=== PATIENT | female | born 1970 | race Caucasian/White ===

== ENCOUNTER 2021-08-04 17:46 | Emergency (ER) | payer OTHER, SELFPAY ==
[2021-08-04 17:47] VITALS: BP 107/95; PULSE 82; RESP 18; TEMP 36.1; O2SAT 97; BMI 20.9
--- NOTE | 2021-08-04 18:33 | ED.VIS.GI ---
HPI HPI - GI History of Present Illness Chief Complaint: Nausea/Vomiting/Diarrhea Informant: patient Abdominal Pain/Flank Pain Onset: Today Context: Gradual Onset Timing: Intermittent Current Severity: Mild Maximum Severity: Mild Nausea/Vomiting/Emesis GI Symptom: Positive for Nausea and Vomiting Onset: Today Severity: Moderate Diarrhea/Melena/Hematochezia GI Symptom: Positive for Diarrhea; Negative for Melena and Hematochezia Onset: Today Stool Quality: Positive for Watery Severity: Moderate Associated Symptoms Associated Symptoms: Negative for Dysuria, Frequency, Hematuria and Urgency Narrative Narrative: Female history of hypertension. States 3 weeks ago she Nebcin nausea vomiting diarrhea and she had to be admitted to [facility] overnight. They never came up with a specific answer at that time. 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 Today she was at home watching a movie felt fine around 330 start having nausea vomiting diarrhea again. Patient drinks city water. She has had no recent travel. No one else at home has been ill. She was on antibiotics several weeks ago for an abscess on her right arm but that is since resolved and she has been off the antibiotics. Her only prior abdominal surgeries are hysterectomy. She is not complaining of any significant pain. Squad gave her Zofran and her nausea is much proved. Prior similar symptoms: Yes Recent Illness/Hospitalization: Yes PFSH [facility] Medical History HTN (hypertension) Home Medications bupropion HCl 150 mg PO DAILY 08/04/21 [History Last Taken Unknown] lisinopril 10 mg PO DAILY 08/04/21 [History Last Taken Unknown] ondansetron 4 mg PO Q6H PRN #7 tab 08/04/21 [Rx Last Taken Unknown] Allergy/AdvReac Type Severity Reaction Status Date / Time Penicillins Allergy Unknown Verified 08/04/21 17:47 Social History Smoking Status: Current every day smoker tobacco type: e-cigarettes ROS ROS ED ROS Narrative Nausea, vomiting and diarrhea. No fever. Review of Systems ROS Unobtainable: Denies due to encephalopathy Constitutional Constitutional ED: Denies fever(s) ENT ENT ED: Denies ear pain Cardiovascular Cardiovascular: Denies chest pain Respiratory/Chest Respiratory/Chest: Denies dyspnea Gastrointestinal Gastrointestinal: Reports diarrhea, nausea and vomiting; Denies abdominal pain Genitourinary Genitourinary ED: Denies dysuria Musculoskeletal Musculoskeletal: Denies myalgias Integumentary Denies rash Neurologic Neurologic: Denies headache(s) Psychiatric Psychiatric: Denies depression Endocrine Endocrinology: Denies polyuria Hematologic/Lymphatic Hematologic/Lymphatic: Denies easy bruising Allergic/Immunologic Allergic/Immunologic ED: Denies urticaria EXAM Physical Exam Narrative Exam Narrative: 51-year-old female no acute distress. Vital signs stable afebrile. H EENT exam mildly dry mucous membranes. Neck nontender. Lungs clear to auscultation bilaterally. Heart regular rate and rhythm rate about 80. Abdomen soft nontender. Normal bowel sounds no peritoneal signs. Nontender. Moving all 4 extremities. Nontender no edema. Neurologically she is awake and alert. Back nontender. Const Vital Signs: 08/04/21 17:47 Temperature 96.9 F L Temperature Source Temporal Pulse Rate 82 Respiratory Rate 18 Blood Pressure 107/95 H Blood Pressure Mean 99 Pulse Ox 97 Oxygen Delivery Method Room Air Positive well nourished and well developed; Negative for obese, cachectic, contractures or unkempt General Appearance ED: well developed and NAD; Negative for unkempt, cachectic, contractures or pallor Nutritional Appearance: Negative for cachectic or obese HEENT Reports dry mucous membranes normocephalic and atraumatic Mouth ED: Yes dry mucous membranes Mouth: dry mucous membranes Eyes PERRL and EOMs intact bilaterally Neck no lymphadenopathy, supple and no JVD General: Negative for tenderness Resp normal respiratory effort and clear to auscultation bilaterally Auscultation: Negative for rales, rhonchi or wheezes Cardio regular rate, regular rhythm, S1 normal heart sound, S2 normal heart sound and no murmurs GI non-tender, non-distended and no masses Auscultation: normoactive bowel sounds Palpation: soft; Negative for tender, guarding or rigid Back/Spine no CVA tenderness General Back: Negative for CVA tenderness Cervical Spine: Negative for cervical spine tenderness Thoracic Spine / Upper Back: Negative for thoracic spinal tenderness Extremity full ROM General Extremety ED: Negative for edema or tenderness General Extremity: Negative for edema Neuro CN's II-XII intact bilaterally and moves all extremities Sensorium / Orientation: alert, oriented to person, oriented to place, oriented to time and orientation impaired; Negative for confused, lethargic or stuporous Motor Exam: strength 5/5 throughout Psych mental status grossly normal and thought process normal Appearance: Negative for unkempt Skin no wounds General Skin Exam: Negative for jaundice or pallor Lesions: no lesions Rashes: no rashes MDM MDM MDM Narrative Medical decision making narrative: 51-year-old nausea vomiting diarrhea. Clinic looks mildly dehydrated. Screening labs will be obtained. IV fluids. At this time her nausea is improved to the squad gave her Zofran. Repeat exam the patient is doing well at 9:52 PM. Abdomen is benign. She is feeling much better. She will be discharged home on Zofran. Lab Data Attestation: I reviewed the patient's lab results. Lab results narrative: CBC showed a white count of 7. H&H of 15 and 43. Normal platelets. Electrolytes showed a sodium 134. Potassium 3.4. Gap of 14. BUN and creatinine 24 and 1.36. Glucose 161. Liver enzymes are unremarkable. Labs: Laboratory Results - last 24 hr 08/04/21 08/04/21 17:50 17:50 WBC 7.9 RBC 4.91 Hgb 15.8 H Hct 43.2 MCV 88.0 MCH 32.2 H MCHC 36.6 H RDW Std Deviation 39.1 RDW Coeff of Janine 12.0 Plt Count 353 MPV 10.1 Immature Gran % (Auto) 0.300 Neut % (Auto) 54.7 Lymph % (Auto) 40.1 [place] % (Auto) 4.4 Eos % (Auto) 0.1 Baso % (Auto) 0.4 Absolute Neuts (auto) 4.3 Absolute Lymphs (auto) 3.16 Nucleated RBC % 0 Sodium 134 L Potassium 3.4 L Chloride 102 Carbon Dioxide 18.0 L Anion Gap 14 BUN 24 H Creatinine 1.36 H Estim Creat Clear Calc 45.58 Est GFR (MDRD) Af Amer 53 L Est GFR (MDRD) Non-Af 44 L BUN/Creatinine Ratio 17.6 Glucose 161 H Calcium 11.3 H Total Bilirubin 0.30 AST 21 ALT 27 Alkaline Phosphatase 77 Total Protein 8.9 H Albumin 4.8 Globulin 4.1 Albumin/Globulin Ratio 1.2 Discharge Plan Triage Chief Complaint: Nausea/Vomiting/Diarrhea ED Provider: Chapo Ivy Dx/Rx/DC Orders Clinical Impression: Nausea & vomiting, Acute dehydration Instructions: ED Vomiting (Adult) Prescriptions: New ondansetron 4 mg tablet,disintegrating 4 mg PO Q6H PRN (Reason: nausea and vomiting) Qty: 7 RF: 0 No Action bupropion HCl 150 mg Tablet Sustained-Release 12 Hr 150 mg PO DAILY RF: 0 lisinopril 10 mg Tablet 10 mg PO DAILY RF: 0 Primary Care Provider: Debbie William Referrals: Debbie William PA [Primary Care Provider] - 1-2 Days if not improving Activity Restrictions/Additional Instructions: Plenty of fluids and rest. Increase your diet slowly as tolerated. Zofran as needed for nausea. If recurs need further evaluation. Disposition Disposition: Home, Self Care
[2021-08-04] MEDS: 0.9% Normal Saline 1,000 ML 1000 ML IV (18:41)
[2021-08-04 18:47] LABS: Absolute Lymphocyte Count 3.16 X10^3/uL (0.83-4.51); Absolute Neutrophil Count 4.3 X10^3/uL (2.0-7.7); Basophil# 0.03 X10^3/uL; Basophil% 0.4 % (0-1); Eosinophil# 0.01 X10^3/uL; Eosinophils% 0.1 % (0-5); Hematocrit 43.2 % (37-47); Hemoglobin 15.8 g/dL (12.0-15.0); Lymphocyte # 3.16 X10^3/ul (0.83-4.51); Lymphocyte % 40.1 % (19-41); Mean Corp Hgb Conc 36.6 g/dL (32-36); Mean Corpuscular Hgb 32.2 pg (27.0-32.0); Mean Platelet Vol. 10.1 fl (6.2-12.0); Monocyte# 0.35 X10^3/uL; Monocyte% 4.4 % (0-10); NRBC Flagged by Analyzer 0 % (0-5); Neutrophil # 4.32 X10^3/uL (2.7-7.7); Neutrophil % 54.7 % (47-70); Platelet Count 353 K/mm3 (150-450); RBC Distribution Width SD 39.1 fl (35.1-43.9); Red Blood Count 4.91 M/mm3 (4.2-5.4); White Blood Count 7.9 K/mm3 (4.4-11.0)
[2021-08-04 19:06] LABS: ALB/GLOB Ratio 1.2 RATIO (0.9-2.4); AST(SGOT) 21 U/L (15-37); Alanine Aminotransfer ALT/SGPT 27 U/L (13-56); Albumin, Serum 4.8 g/dL (3.2-5.0); Alkaline Phosphatase 77 U/L (45-117); Anion Gap 14 (5-15); BUN 24 mg/dL (7-18); BUN/Creat Ratio 17.6 RATIO (10-20); Calcium,Total 11.3 mg/dL (8.5-10.1); Chloride 102 mmol/L (98-107); Creatinine, Serum 1.36 mg/dL (0.55-1.02); EST Glomerular Filtration Rate 44 mL/min (>60); Est Glom Filt Rate - Afr Amer 53 mL/min (>60); Estimated Creatinine Clearance 45.58 ml/min; Globulin 4.1 g/dL (2.2-4.2); Glucose 161 mg/dL (74-106); Potassium 3.4 mmol/L (3.5-5.1); Protein, Total 8.9 g/dL (6.4-8.2); Sodium Level 134 mmol/L (136-145)
[2021-08-04 21:53] VITALS: BP 124/85; PULSE 84; RESP 16; O2SAT 97
[2021-08-04 22:04] VITALS: BP 124/85; PULSE 84; RESP 16; O2SAT 97
== END 2021-08-04 22:47 | disposition home or self-care (01) ==
PROVIDERS: Emergency Provider Emergency Medicine; PCP Physician Assistant; Visit Provider Emergency Medicine
DX: R11.2 Nausea with vomiting, unspecified (principal); I10 Essential (primary) hypertension; R19.7 Diarrhea, unspecified; F17.290 Nicotine dependence, other tobacco product, uncomplicated; R10.9 Unspecified abdominal pain; E86.0 Dehydration; Z79.899 Other long term (current) drug therapy
CPT/HCPCS: 80053; 85025; 99285; J7030

== ENCOUNTER 2023-07-17 15:23 | Emergency (ER) | payer OTHER, SELFPAY ==
[2023-07-17 15:23] VITALS: BP 117/82; PULSE 96; RESP 22; TEMP 36.8; O2SAT 97; BMI 22.7
[2023-07-17 16:03] LABS: Absolute Lymphocyte Count 1.59 X10^3/uL (0.83-4.51); Absolute Neutrophil Count 8.4 X10^3/uL (2.0-7.7); Basophil# 0.04 X10^3/uL; Basophil% 0.4 % (0-1); Eosinophil# 0.15 X10^3/uL; Eosinophils% 1.4 % (0-5); Hematocrit 41.2 % (37-47); Hemoglobin 13.7 g/dL (12.0-15.0); Lymphocyte # 1.59 X10^3/ul (0.83-4.51); Lymphocyte % 14.8 % (19-41); Mean Corp Hgb Conc 33.3 g/dL (32-36); Mean Corpuscular Hgb 30.4 pg (27.0-32.0); Mean Corpuscular Volume 91.4 fL (81-99); Mean Platelet Vol. 8.5 fl (6.2-12.0); Monocyte# 0.57 X10^3/uL; Monocyte% 5.3 % (0-10); NRBC Flagged by Analyzer 0 % (0-5); Neutrophil # 8.38 X10^3/uL (2.7-7.7); Neutrophil % 77.7 % (47-70); Platelet Count 338 K/mm3 (150-450); RBC Distribution Width SD 39.9 fl (35.1-43.9); Red Blood Count 4.51 M/mm3 (4.2-5.4); White Blood Count 10.8 K/mm3 (4.4-11.0)
[2023-07-17 16:08] LABS: Bacteria 0 SEEN /hpf (None Seen); Mucous, Urine 0 SEEN /hpf (<or=2+); White Blood Cells 0 SEEN /hpf (0-5)
--- NOTE | 2023-07-17 16:15 | ED.VIS.GI ---
HPI HPI - GI History of Present Illness Chief Complaint: Abd Pain Informant: patient Abdominal Pain/Flank Pain Onset: Days (3) Context: Sudden Onset Timing: Continuous Quality: Cramping Location: Diffuse Worsened by: Food Relieved by: Nothing Nausea/Vomiting/Emesis GI Symptom: Positive for Nausea and Vomiting Onset: Days (3) Quality: Positive for Nonbilious; Negative for Blood streaks, Coffee ground or Hematemesis Diarrhea/Melena/Hematochezia GI Symptom: Positive for Diarrhea; Negative for Melena or Hematochezia Onset: Days (3) Stool Quality: Positive for Watery Associated Symptoms Associated Symptoms: Negative for Dysuria, Frequency or Hematuria Narrative Narrative: Patient presents with abdominal pain that has been constant for the past 3 days. Patient states it began rather suddenly. Patient states it is diffuse across her entire abdomen. Patient describes it as cramping. Patient states it is worse with eating. Patient states nothing seems to help with it. Patient admits to some nausea and vomiting. Patient states she has been to keep anything down over the last 3 days. Patient denies any hematemesis or coffee-ground emesis. Patient admits to some diarrhea. Patient states it is watery. Patient denies any melena or hematochezia. Patient denies any dysuria, frequency, or hematuria. Patient has had a hysterectomy and no longer has any menstrual periods. Patient denies any vaginal bleeding or discharge. [facility] Medical History (Updated 07/17/23 @ 19:[address] Jorge Luis Reyes, DO) HTN (hypertension) Home Medications bupropion HCl 150 mg tablet,12 hr sustained-release 150 mg PO DAILY 08/04/21 [History Last Taken Unknown] lisinopril 10 mg tablet 10 mg PO DAILY 08/04/21 [History Last Taken Unknown] ondansetron 4 mg disintegrating tablet 4 mg PO Q6H PRN nausea and vomiting #7 tabs 08/04/21 [Rx Last Taken Unknown] ciprofloxacin HCl 500 mg tablet 500 mg PO BID #42 TABLETS 07/17/23 [Rx Last Taken Unknown] hydrocodone-acetaminophen 5-325mg 5mg-325mg 1 tab PO Q6H PRN PRN Pain 3 days #10 TABLETS 07/17/23 [Rx Last Taken Unknown] metronidazole 500 mg tablet 500 mg PO Q8H #63 tabs 07/17/23 [Rx Last Taken Unknown] prednisone 20 mg tablet 40 mg (2 x 20 mg) PO DAILY 21 days #42 TABLETS 07/17/23 [Rx Last Taken Unknown] Allergy/AdvReac Type Severity Reaction Status Date / Time Penicillins Allergy Unknown Verified 08/04/21 17:47 Surgical History History of hysterectomy Social History Smoking Status: Current every day smoker tobacco type: e-cigarettes ROS ROS ED Constitutional Constitutional ED: Reports chills and subjective; Denies fever(s) Eyes Eyes: Denies blurry vision or change in vision ENT ENT ED: Denies rhinorrhea or sore throat Cardiovascular Cardiovascular: Denies chest pain or palpitations Respiratory/Chest Respiratory/Chest: Denies cough or dyspnea Gastrointestinal Gastrointestinal: Reports abdominal pain, diarrhea, nausea and vomiting; Denies melena Genitourinary Genitourinary ED: Denies dysuria or hematuria Musculoskeletal Musculoskeletal: Denies back pain or neck pain Integumentary Denies abscess or rash Neurologic Neurologic: Reports headache(s); Denies weakness Allergic/Immunologic Allergic/Immunologic ED: Denies mouth swelling or urticaria EXAM Physical Exam Const Vital Signs: 07/17/23 15:23 07/17/23 18:44 Temperature 98.3 F Temperature Source Temporal Pulse Rate 96 86 Respiratory Rate 22 H 15 Blood Pressure 117/82 H 139/84 H Blood Pressure Mean 93 102 Pulse Ox 97 97 Oxygen Delivery Method Room Air Room Air Positive well nourished and well developed General Appearance ED: well developed and NAD HEENT Reports moist mucous membranes Neck supple and no JVD Resp normal respiratory effort and clear to auscultation bilaterally Cardio regular rate and regular rhythm GI non-distended Palpation: soft and tender epigastric, LLQ, RLQ, LUQ, RUQ, periumbilical and suprapubic; Negative for guarding or rebound tenderness present Extremity full ROM Neuro CN's II-XII intact bilaterally, moves all extremities and no sensory deficits noted Sensorium / Orientation: alert Motor Exam: strength 5/5 throughout Psych mental status grossly normal MDM MDM MDM Narrative Medical decision making narrative: Differential diagnosis includes bowel obstruction, perforation, pancreatitis, gastritis, peptic ulcer disease, urinary tract infection, pyelonephritis, ureteral calculus, colitis, diverticulitis, and viral illness. CBC will be obtained to assess for leukocytosis and anemia. Comprehensive metabolic profile will be obtained to assess for hepatic function, renal function, and electrolyte abnormality. Urinalysis will be obtained to assess for urinary tract infection. Lipase will be obtained to assess for pancreatitis. CT scan of the abdomen pelvis will be obtained to assess for bowel obstruction, perforation, colitis, diverticulitis, and ureteral calculus. Lab Data Attestation: I reviewed the patient's lab results. Lab results narrative: CBC was reviewed and was within normal limits. Comprehensive metabolic profile was reviewed and was within normal limits. Urinalysis was reviewed. There is no evidence of urinary tract infection or hematuria. Lipase was reviewed and was normal at 66. Labs: Laboratory Results - last 24 hr 07/17/23 07/17/23 15:37 15:54 WBC 10.8 RBC 4.51 Hgb 13.7 Hct 41.2 MCV 91.4 MCH 30.4 MCHC 33.3 RDW Std Deviation 39.9 RDW Coeff of Janine 12.0 Plt Count 338 MPV 8.5 Immature Gran % (Auto) 0.400 Neut % (Auto) 77.7 H Lymph % (Auto) 14.8 L [place] % (Auto) 5.3 Eos % (Auto) 1.4 Baso % (Auto) 0.4 Absolute Neuts (auto) 8.4 H Absolute Lymphs (auto) 1.59 Nucleated RBC % 0 Sodium 137 Potassium 3.8 Chloride 106 Carbon Dioxide 26.0 Anion Gap 5 BUN 18 Creatinine 0.96 Estim Creat Clear Calc 63.44 Est GFR (MDRD) Af Amer 78 Est GFR (MDRD) Non-Af 65 BUN/Creatinine Ratio 18.8 Glucose 131 H Calcium 9.7 Total Bilirubin 0.40 AST 8 L ALT 15 Alkaline Phosphatase 35 L Total Protein 7.3 Albumin 3.9 Globulin 3.4 Albumin/Globulin Ratio 1.1 Lipase 66 Urine Color Yellow Urine Clarity Clear Urine pH 7.0 Ur Specific [place] 1.010 Urine Protein Negative Urine Glucose (UA) Normal Urine Ketones 50 H Urine Occult Blood Negative Urine Nitrite Negative Urine Bilirubin Negative Urine Urobilinogen Normal Ur Leukocyte Esterase Negative Urine RBC 0-5 SEEN Urine WBC 0 SEEN Ur Squamous Epith Cells 0-5 SEEN Urine Bacteria 0 SEEN Urine Mucus 0 SEEN Radiography Diagnostic Testing: Clinical Impression(s) from Imaging Studies Abdomen/Pelvis CT 07/17/23 16:37 IMPRESSION: 1. Severe ileitis of the distal ileum and terminal ileum possibly infectious ileitis or Crohn''s disease. No evidence of ischemia or perforation. 2. 3 mm obstructing stone at the distal left ureter with severe ureteral dilatation and hydronephrosis. Questionable mass or stricture of the distal ureter distal to the stone and correlation with retrograde pyelogram may be useful. 3. Small amount of ascites. Electronically Signed: Ibrahima Ward MD at 19:13 EST , ADDENDUM: 07/17/231925 IMPRESSION: 1. Severe ileitis of the distal ileum and terminal ileum possibly infectious ileitis or Crohn''s disease. No evidence of ischemia or perforation. 2. 3 mm obstructing stone at the distal left ureter with severe ureteral dilatation and hydronephrosis. Questionable mass or stricture of the distal ureter distal to the stone and correlation with retrograde pyelogram may be useful. 3. Small amount of ascites. N.B. : The above Results were Read Back by Ibrahima Ward MD to Jorge Luis Reyes DO, and understanding confirmed on 07/17/2023 19:19:40 (ET). Electronically Signed: Ibrahima Ward MD at 19:13 EST , CT scan of the abdomen pelvis was obtained. There is severe ileitis of the distal ileum and terminal ileum. There is no evidence of ischemia or perforation. There is also a 3 mm obstructing stone at the left distal ureter with ureteral dilatation and hydronephrosis. There is a questionable mass or stricture at the distal ureter. There is a small amount of ascites noted. This was interpreted by the radiologist and was also independently reviewed by myself. Treatment and Re-Evaluation :: Patient was given IV fluids, morphine, Zofran, and Bentyl. Patient was given a repeat dose of morphine. Patient was advised of her findings. Case was discussed with Dr. Hewitt from gastroenterology. He recommended starting the patient on Solu-Medrol here in the emergency department and prescribing prednisone, Cipro, and Flagyl for 21 days. He will follow-up with the patient in his office for this. Patient was also given referral for urology. Patient was also given a prescription for a short course of [place]. Patient was instructed to follow-up with her primary care physician in 7 to 10 days as well. Patient understood and was agreeable with the plan. All questions were answered. Discharge Plan Triage Chief Complaint: Abd Pain ED Provider: Jorge Luis Reyes Dx/Rx/DC Orders Clinical Impression: Terminal ileitis, Calculus of distal left ureter, Abdominal pain Instructions: ED Crohn's Disease, ED Kidney Stone with Pain Prescriptions: New hydrocodone-acetaminophen [hydrocodone-acetaminophen] 5-325 mg tablet 1 tab PO Q6H PRN PRN (Reason: Pain) 3 Days Qty: 10 0RF prednisone 20 mg tablet 40 mg PO DAILY 21 Days Qty: 42 0RF metronidazole [metronidazole] 500 mg tablet 500 mg PO Q8H Qty: 63 0RF ciprofloxacin HCl [ciprofloxacin HCl] 500 mg tablet 500 mg PO BID Qty: 42 0RF No Action bupropion HCl 150 mg Tablet Sustained-Release 12 Hr 150 mg PO DAILY lisinopril 10 mg Tablet 10 mg PO DAILY ondansetron 4 mg tablet,disintegrating 4 mg PO Q6H PRN (Reason: nausea and vomiting) Qty: 7 0RF Primary Care Provider: Debbie William Referrals: Belgica Eli MD [Med Staff - Active Staff] - 3-5 Days Augustin Hewitt DO [Med Staff - Active Staff] - 1-2 Weeks Debbie William PA [Primary Care Provider] - 5-7 Days Disposition Disposition: Home, Self Care
[2023-07-17 16:17] LABS: ALB/GLOB Ratio 1.1 RATIO (0.9-2.4); AST(SGOT) 8 U/L (15-37); Alanine Aminotransfer ALT/SGPT 15 U/L (13-56); Albumin, Serum 3.9 g/dL (3.2-5.0); Alkaline Phosphatase 35 U/L (45-117); Anion Gap 5 (5-15); BUN 18 mg/dL (7-18); BUN/Creat Ratio 18.8 RATIO (10-20); Calcium,Total 9.7 mg/dL (8.5-10.1); Chloride 106 mmol/L (98-107); Creatinine, Serum 0.96 mg/dL (0.55-1.02); EST Glomerular Filtration Rate 65 mL/min (>60); Est Glom Filt Rate - Afr Amer 78 mL/min (>60); Estimated Creatinine Clearance 63.44 ml/min; Globulin 3.4 g/dL (2.2-4.2); Glucose 131 mg/dL (74-106); Potassium 3.8 mmol/L (3.5-5.1); Protein, Total 7.3 g/dL (6.4-8.2); Sodium Level 137 mmol/L (136-145)
[2023-07-17 16:19] LABS: Color, Urine Yellow (Yellow); Glucose, Dipstick Normal (Normal); Ketone-Dipstick 50 mg/dl (Negative); Leukocyte Esterase-Dipstick Negative /ul (Negative); Nitrite-Dipstick Negative (Negative); Occult Blood-Urine Negative /ul (Negative); Protein-Dipstick Negative (Negative); Urine Bilirubin Dipstick Negative (Negative); Urine Clarity Clear (Clear); Urine Urobilinogen Normal (Normal)
[2023-07-17 16:37] LABS: Red Blood Cells-Urine 0-5 SEEN /hpf (0-5); Squamous Epithelial Cells - UA 0-5 SEEN /hpf (5-10)
--- NOTE | 2023-07-17 16:37 | CT_ITS ---
We are attempting to reach an attending provider to discuss findings. An addendum with communication details will be sent when the communication is complete. STUDY: CT ABDOMEN AND PELVIS WITH CONTRAST REASON FOR EXAM: Female, 53 years old. Abdominal pain RADIATION DOSAGE (If Supplied By Facility): CTDIvol = ( 13.46 ) mGy, DLP = ( 917.57 ) mGycm TECHNIQUE: Transaxial images were obtained from the dome of the diaphragm to the symphysis pubis with oral contrast. ISOVUE 370-100ml, Gastrografin was administered. Sagittal and coronal images were reconstructed. Individualized dose optimization techniques were used for this CT. COMPARISON: None. FINDINGS: The visualized lung bases are unremarkable. The visualized portions of the heart are within normal limits. Small amount of ascites. Multiple small hepatic lesions with the largest in the anterior segment of the right lobe measuring 2 cm with water attenuation consistent with a cyst. Ill-defined areas of decreased attenuation in the medial segment left lobe of liver adjacent to the falciform ligament likely consistent with some focal fatty infiltration. Normal gallbladder and extrahepatic biliary system. Normal spleen. Normal pancreas. Normal bilateral adrenal glands. Normal right kidney. 3 mm obstructing stone of the distal left ureter with severe ureteral dilatation and hydronephrosis. Soft tissue attenuation of the most distal aspect of the ureter distal to this stone raising the possibility of a mucosal mass or stricture. Retrograde sonogram may be useful. Normal visualized stomach. Severe wall thickening and stranding in the surrounding fat of the terminal ileum consistent with ileitis possibly infectious ileitis or Crohn''s disease. Clinical correlation is recommended. Normal enhancement of the mesenteric vessels without evidence of acute or chronic mesenteric ischemia. No pneumatosis to suggest ischemia and no pneumoperitoneum to suggest perforation. Normal colon. The appendix is visualized and appears normal. Normal abdominal aorta. Normal inferior vena cava. Normal retroperitoneum. Normal urinary bladder. Normal abdominal wall. Mild dextro scoliosis lumbar spine with degenerative disc disease L5/S1. CT/Abdomen/Pelvis WITH Contrast IMPRESSION: 1. Severe ileitis of the distal ileum and terminal ileum possibly infectious ileitis or Crohn''s disease. No evidence of ischemia or perforation. 2. 3 mm obstructing stone at the distal left ureter with severe ureteral dilatation and hydronephrosis. Questionable mass or stricture of the distal ureter distal to the stone and correlation with retrograde pyelogram may be useful. 3. Small amount of ascites. Electronically Signed: Ibrahima Ward MD at 19:13 EST ,
[2023-07-17] MEDS: 0.9% Normal Saline (1000mL) 1,000 ML 1000 ML IV (16:47)
[2023-07-17] MEDS: Morphine 4 MG/ML Syringe IV ×2 (16:48→19:39)
[2023-07-17] MEDS: Ondansetron 4 MG/2 ML Vial IV (16:49)
[2023-07-17] MEDS: Dicyclomine 20 MG/2 ML Vial IM (16:50)
[2023-07-17 17:29] LABS: Lipase 66 U/L (13-75)
--- OUTSIDE RECORDS SUMMARY | 2023-07-17 17:51 | XMS RPT_ITS | CCD ---
Author Name Unknown Address [address] [place] [address] Organization [facility] Care Team Providers Care Fire Watchman Name Role Phone Israel Fritz Unavailable Unavailable Unavailable, Family Physician Unavailable Un available Unavailable, Family Physician Unavailable Un available Israel Fritz Unavailable Unavailable Unavailable, Family Physician Unavailable Un available Unavailable, Family Physician Unavailable Un available Israel Fritz Unavailable Unavailable Unavailable Primary Care Provider Unavailabl e EMILI KRISHNA Consulting Unavailable SHAN HANSON PA-C Admitting Unavailab SHAN Plasencia PA-C Primary Care Unavailab SHAN Plasencia PA-C Attending Unavailab le PROVIDER, UNKNOWN Consulting Unavailable EMILI KRISHNA Primary Care Unavailable EMILI KRISHNA Consulting Unavailable EMILI KRISHNA Attending Unavailable EMILI KRISHNA Admitting Unavailable PROVIDER, UNKNOWN Consulting Unavailable Allergies Allergy Classification Reported Allergen(s) Allergy Type Date of Onset Reaction(s) Facility (1 source) Penicillins Propensity to adverse reactions to drug 2 Other (See Comments) [facility] (1 source) Penicillins Drug allergy (disorder) [facility] Repository Medications Current Medications Medication Drug Class(es) Dates Sig (Normalized) Sig (Original) lisinopril 40 mg oral tablet (3 sources) Angiotensin Converting Enzyme Inhibitor Start: 07-15-2021 take 1 tablet by mouth once daily lisinopril (PRINIVIL,ZESTRIL ) 40 MG tablet Take 1 tablet by mouth daily. 30 tablet 0 07/15/2021 Active Completed/Discontinued Medications Medication Drug Class(es) Dates Sig (Normalized) Sig (Original) aluminum hydroxide 40 mg/ml / magnesium hydroxide 40 mg/ml oral suspension (1 source) Start: 07-10-2021 End: 07-11-2021 take 30 mL by mouth every six hours as needed 30 mL, Oral, EVERY 6 HOURS PRN, Indigestion, Starting on Thu07/10/21 at 2015, Until Thu07/11/21 at 1629 12 hr buPROPion hydrochloride 150 mg extended release oral tablet (3 sources) Aminoketone Start: 07-10-2021 End: 07-11-2021 take 150 mg by mouth twice daily 150 mg, Oral, TWO TIMES A DAY, First dose on Thu07/10/21 at 2100, Until Discontinued Caution: Do not crush or chew. Caution: This medication looks and/or sounds like another medication. Problems Problem Classification Problem Date Documented Da te Episodic/Chronic Abdominal pain (1 source) Abdominal pain; Translations: [Unspecified abdominal pain] Episodic Diseases of white blood cells (1 source) Leukocytosis; Translations: [Elevated white blood cell count, unspecified] Chronic Immunizations and screening for infectious disease (1 source) Contact with or exposure to other viral diseases; Translations: [Lab test negative for COVID-19 virus] Episodic Nausea and vomiting (1 source) Nausea, vomiting and diarrhea; Translations: [Nausea with vomiting, unspecified] Episodic Other liver diseases (1 source) Steatosis of liver; Translations: [Fatty (change of) liver, not elsewhere classified] Chronic Other liver diseases (1 source) Liver cyst; Translations: [Other specified diseases of liver] Chronic Other liver diseases (1 source) High lipase level in serum; Translations: [Abnormal levels of other serum enzymes] Episodic Other screening for suspected conditions (not mental disorders or infectious disease) (4 sources) Lactic acidemia; Translations: [Other specified abnormal findings of blood chemistry] Onset: 08-25-2022 Episodic Septicemia (except in labor) (2 sources) Sepsis without acute organ dysfunction; Translations: [Sepsis, unspecified organism] Onset: 07-10-2021 Episodic Results Test Name Value Interpretation Reference Range Facil ity Vital Signs Date Time Vital Sign Value Performing Clinician Facility 07-11-2021 07:18-0500 Body temperature 97.81 [degF] Eric Hernandez MD Work Phone: [facility] 07-11-2021 07:18-0500 Diastolic blood pressure 69 mm[Hg] Eric Hernandez MD Work Phone: [facility] 07-11-2021 07:18-0500 Heart rate 71 /min Eric Hernandez MD Work Phone: [facility] 07-11-2021 07:18-0500 Respiratory rate 16 /min Eric Hernandez MD Work Phone: [facility] 07-11-2021 07:18-0500 SaO2% (BldA) [Mass fraction] 99 % Eric Hernandez MD Work Phone: [facility] 07-11-2021 07:18-0500 Systolic blood pressure 103 mm[Hg] Eric Hernandez MD Work Phone: [facility] 07-10-2021 20:11-0500 Body height 167.6 cm Eric Hernandez MD Work Phone: [facility] 07-10-2021 20:11-0500 Body mass index (BMI) [Ratio] 20.18 kg/m2 Eric Hernandez MD Work Phone: [facility] 07-10-2021 20:11-0500 Body weight 56.7 kg Eric Hernandez MD Work Phone: [facility] Encounters Encounter Date Encounter Type Care Provider Facility Start: 08-27-2022 End: 08-27-2022 ambulatory [facility] Start: 08-25-2022 End: 08-25-2022 ambulatory [facility] Start: 07-10-2021 End: 07-11-2021 Emergency department patient visit Eric Hernandez MD Work Phone: [facility] ([facility]) Procedures Date Procedure Procedure Detail Performing Clinician Start: 07-11-2021 CBC W Auto Different ial panel - Blood Morgna Starks MD Work Phone: Start: 07-11-2021 Comprehensive metabo lic panel Skyler JACK Work Phone: Start: 07-11-2021 GLOMERULAR FILTRATION RATE Morgan Starks MD Work Phone: Start: 07-11-2021 Assay of lipase Carlos Weldon MD Work Phone: Start: 07-10-2021 Hemoglobin glycosylated a1c Carlos Weldon MD Work Phone: Start: 07-10-2021 Assay of troponin quantitative Aquiles Campuzano APRN [facility] Work Phone: Start: 07-10-2021 Assay of troponin quantitative Aquiles Campuzano APRN [facility] Work Phone: Start: 07-10-2021 Ct abdomen & pelvis w/contrast material Aquiles Campuzano APRN [facility] Work Phone: Start: 07-10-2021 Culture bacterial bl ood aerobic w/id isolates Aquiles Campuzano APRN [facility] Work Phone: Start: 07-10-2021 Sars-cov-2 detection by dna/rna Aquiles Campuzano APRN [facility] Work Phone: Start: 07-10-2021 Urnls dip stick/tabl et rgnt non-auto w/o micrscp Aquiles Campuzano APRN [facility] Work Phone: Start: 07-10-2021 End: 07-10-2021 Basic metabolic panel calcium total Aquiles Campuzano APRN [facility] Work Phone: Start: 07-10-2021 CBC W Auto Different ial panel - Blood Aquiles Campuzano APRN [facility] Work Phone: Start: 07-10-2021 GLOMERULAR FILTRATION RATE Aquiles Campuzano APRN [facility] Work Phone: Start: 07-10-2021 Hepatic function panel Aquiles Campuzano APRN [facility] Work Phone: Start: 07-10-2021 Ecg routine ecg w/le ast 12 lds trcg only w/o i&r Aquiles Campuzano APRN [facility] Work Phone: Plan of Treatment Date Care Activity Detail Author Start: 01-30-2021 Influenza vaccination given INFLUENZA VACCINE (#1) [facility] Start: 12-18-2020 COVID-19 VACCINE (3 - Booster for Pfizer series) COVID-19 VACCINE (3 - Booster for Pfizer series) [facility] Start: 02-18-2020 Zoster vaccine hzv live for subcutaneous use ZOSTER (SHINGLES) VACCINE (1 of 2) [facility] Start: 2015 Screening for malignant neoplasm of colon [facility] Start: 2010 Screening mammography MAMMOGRAM [facility] Start: 02-18-1988 ANNUAL WELLNESS VISIT ANNUAL WELLNESS VISIT [facility] Start: 1982 Depression screening using PHQ-9 (Patient Health Questionnaire 9) score DEPRESSION SCREENING [facility] Start: 1981 Diphtheria + pertussis + tetanus vaccine (product) DTAP/TDAP/TD VACCINE (1 - Tdap) [facility] Immunizations Immunization Date Immunization Notes Care Provider Fa cility 04-24-2020 influenza virus vaccine, unspecified formulation Eric Hernandez MD Work Phone: [facility] Payers Date Payer Category Payer Unknown MMO MMO [employer] [id number] 2021-Present [phone] [address] [place] [address] Indemnity [id number] 2016 Private Health Insurance [id number] 1970 Unknown [id number] 1970 Unknown [id number] Unknown [id number] Social History Date Type Detail Facility Start: [facility]10-2021 [facility] Start: 07-10-2021 Tobacco use and exposure Smokeless tobacco non-user [facility] Start: 07-10-2021 Alcohol intake Ex-drinker (finding) [facility] Start: 1970 Sex Assigned At Not on file [facility] Exposure to SARS-CoV -2 (event) Not sure [facility] Note 07-11-2021 D/C Mary José RN - 07/11/2021 3:16 PM ESTD/C Mary José RN - 07/11/2021 3:15 PM ESTNursing - Beth York RN - 07/11/2021 10:16 AM EST Note Date & Type Note Facility 07-11-2021 Miscellaneous Notes Discharged to home today. Discharge orders were reviewed before the patient left the hospital. No CM discharge needs noted. Case Management (CM) has reviewed Early Screening for Discharge Planning (ESDP). Patient has been identified as low risk Patient chart has been reviewed. CM introduced self to patient/family, explained the role of CM and answered any questions. CM provided patient/family with contact information and patient/family is aware that they may request discharge planning at any time. No discharge planning needs identified at this time. Please contact/consult CM if needs arise, patient has a change in condition, or patient/family requests assistance with discharge planning. Patient plans to drive self at discharge. She has no DME or HHC. Patient has prescriptive coverage and fills at [facility] in [facility]. DCP today is home self care. CM following. Pt tolerating advanced diet and labs are back. Dr. Starks aware and ok to discharge. Pt read and verbalizes discharge instructions. Questions answered. Declined transport to car. Pt rested through the night. No c/o abdominal pain, nausea/vomiting, or diarrhea. Tolerated full liquid diet (pudding, jello, chicken broth, water, and Sprite) well w/o complication. Feels much better this AM. Declines AM family update. States she will drive herself home today if d/c'd. Patient arrives from ED by cart to room 4107. Transferred to bed unassisted. Patient reports feeling cold, hungry, and thirsty. Patient's current mental status is A&O x 4. documented in this encounter [facility] Hospital Discharge instructions 07-11-2021 Instructions Note Date & Type Note Facility 07-11-2021 Hospital Discharg e instructions Beth York RN - 07/11/2021 Images from the original note were not included. Instructions for patient: Take all medications as prescribed. Attend all follow-up appointments. What to do after you leave the hospital: If you experience any of the following symptoms: Fever over 100.4, abdominal pain, nausea/vomiting, diarrhea, bloody or black stools, increased weakness/fatigue, please follow up with the emergency room. Activity: Resume previous activity as tolerated. Diet: Diet full liquid Feeds Self The following personal items were collected during your admission and were returned to you: Valuables Dentures: None Vision - Corrective Lenses: None Hearing Aid: None Jewelry: None Clothing: Pants, Shirt, Footwear Home medical equipment: None Other Valuables: None Offered to send valuables to safe: Declined after education Valuables Given To: Patient Verified above items were sent on patient:: Transfer Diarrhea: Care Instructions Overview Diarrhea is loose, watery stools (bowel movements). The exact cause is often hard to find. Sometimes diarrhea is your body's way of getting rid of what caused an upset stomach. Viruses, food poisoning, and many medicines can cause diarrhea. Some people get diarrhea in response to emotional stress, anxiety, or certain foods. Almost everyone has diarrhea now and then. It usually isn't serious, and your stools will return to normal soon. The important thing to do is replace the fluids you have lost, so you can prevent dehydration. The doctor has checked you carefully, but problems can develop later. If you notice any problems or new symptoms, get medical treatment right away. Follow-up care is a newman part of your treatment and safety. Be sure to make and go to all appointments, and call your doctor if you are having problems. It's also a good idea to know your test results and keep a list of the medicines you take. How can you care for yourself at home? Watch for signs of dehydration, which means your body has lost too much water. Dehydration is a serious condition and should be treated right away. Signs of dehydration are: ? Increasing thirst and dry eyes and mouth. ? Feeling faint or lightheaded. ? A smaller amount of urine than normal. To prevent dehydration, drink plenty of fluids. Choose water and other clear liquids until you feel better. If you have kidney, heart, or liver disease and have to limit fluids, talk with your doctor before you increase the amount of fluids you drink. When you feel like eating, start with small amounts of food. The doctor may recommend that you take kfyt-eae-mbediid medicine, such as loperamide (Imodium). Read and follow all instructions on the label. Do not use this medicine if you have bloody diarrhea, a high fever, or other signs of serious illness. Call your doctor if you think you are having a problem with your medicine. When should you call for help? Call 911 anytime you think you may need emergency care. For example, call if: You passed out (lost consciousness). Your stools are maroon or very bloody. Call your doctor now or seek immediate medical care if: You are dizzy or lightheaded, or you feel like you may faint. Your stools are black and look like tar, or they have streaks of blood. You have new or worse belly pain. You have symptoms of dehydration, such as: ? Dry eyes and a dry mouth. ? Passing only a little urine. ? Cannot keep fluids down. You have a new or higher fever. Watch closely for changes in your health, and be sure to contact your doctor if: Your diarrhea is getting worse. You see pus in the diarrhea. You are not getting better after 2 days (48 hours). Where can you learn more? Go to https://www.Rupee[employer].net/sesar Hendrix Enter W335 in the search box to learn more about Diarrhea: Care Instructions. Current as of: November 29, 2020 Content Version: 13.1 [employer]. Care instructions adapted under license by your healthcare professional. If you have questions about a medical condition or this instruction, always ask your healthcare professional. [employer] disclaims any warranty or liability for your use of this information. documented in this encounter [facility] course Narrative 07-11-2021 Skyler Philip, SESAR - 07/11/2021 8:43 AM EST Note Date & Type Note Facility 07-11-2021 Hospital course Narrative [facility] Medicine / [facility] Discharge Summary Kiara Gabriel Account: [id number] Admitted: 07/10/2021 Discharge Date/Time: 07/11/21 8:43 AM _ Handoff to PCP PCP to address the following 1. Resumption of Lisnopril in ~ 5 days, recommend repeat BMP in ~ 1 week. 2. If diarrhea reoccurrence possible outpatient cdiff testing. Clinical Summary Kiara Gabriel is a 51 y.o. female with a history of hypertension who presented to [facility] 07/10/2021 with acute onset vomiting, diarrhea, abdominal pain of 3 hours duration. In the ED mets SIRS criteria with RR 33, temp 96.3, WBC 17 and hypotension with BP 88/62. Other abnormal labs included Glucose 204, Cr 1.08, AST 92, lactate 4, Lipase [address] showing multiple fluid dilated small bowel loops with some thickening suggesting possible enteritis 1. Sepsis due to possible enteritis: Suspect viral etiology v C.diff from recent antibiotic exposure. CT A/P showed multiple fluid dilated small bowel loops with some thickening suggestive of possible enteritis. S/p 30 ml/kg. Due to no fever and acuity of symptoms with noted improvement since presentation, monitored off antibiotics. Supportive care. Blood cultures 07/10/21 pending. Stool Cx 07/10/21 pending. 2. Recent Arm Abscess: RUE and evaluated by PCP and initiated on doxycyline for 10d course on 07/01/21. Appears resolved on 07/11 examination. Discontinued on discharge. 3. Lactic acidosis: suspect due to dehydration. Improved with fluids. 4. Possible ORION: likely d/t hypovolemia. Cr 1.08 on admit. No prior lab values. Resolved on repeat. 5. Elevated Lipase: Suspect due to enteritis. Clinically and radiologically no evidence of pancreatitis. 6. Hypertension: with hypotension as above, home meds held on admit. Resume as able. 7. Reactive Hyperglycemia: with no known DM. Suspect reactive. A1c 07/10/21 4.9. 8. Incidental findings: Admit CT noted fatty liver, hepatic cyst and mildly distended GB. To monitor as outpatient. Disposition: Home Discharge Medications Medication List STOP taking these previous medications doxycycline 100 MG capsule Commonly known as: MONODOX CONTINUE these medications which have CHANGED or have new prescriptions Last dose given Next dose due lisinopril 40 MG tablet Dose: 40 mg Quantity: 30 tablet Refills: 0 Take 1 tablet by mouth daily. Commonly known as: PRINIVIL,ZESTRIL Start taking on: July 15, 2021 What changed: These instructions start on July 15, 2021. If you are unsure what to do until then, ask your doctor or other care provider. This is the list of medications that you provided. Last dose given Next dose due Wellbutrin SR 150 MG 12 hr tablet Dose: 150 mg Refills: 0 Take 150 mg by mouth two times a day. 2nd dose to be taken before 6pm Generic drug: buPROPion Physician(s) Family: No primary care provider on file., Phone: None, Address: No primary physician on file. Follow Up: Follow-up primary physician No future appointments. For more detailed information including patient medical records, please contact [phone] or go to [email or web address] Patient instructions, including activity, were given to the patient/family at discharge. Please see the After Visit Summary in the medical record for details. Time spent on discharge: > 30 Minutes Completed by: Skyler Philip on 07/11/21, 8:43 AM Associated attestation - Morgan Starks MD - 07/11/2021 1:50 PM EST I saw and evaluated the patient independently. I reviewed the CHAU's and agree with the documented findings and plan of care with the following additions. Overnight events: none, she is feeling better, asked for DC home, tolerating diet. I advised her to contact PCP if diarrhea returns. Time spent on discharge > 30 minutesdocumented in this encounter [facility] History of Present illness Narrative 07-11-2021 Skyler Philip PA - 07/11/2021 7:24 AM EST Note Date & Type Note Facility 07-11-2021 History of Present illness Narrative [facility] Medicine / [facility] Inpatient Progress Note 07/11/2021 Kiara Gabriel [id number] Assessment/Plan: Kiara Gabriel is a 51 y.o. female with a history of hypertension who presented to [facility] 07/10/2021 with acute onset vomiting, diarrhea, abdominal pain of 3 hours duration. In the ED mets SIRS criteria with RR 33, temp 96.3, WBC 17 and hypotension with BP 88/62. Other abnormal labs included Glucose 204, Cr 1.08, AST 92, lactate 4, Lipase [address] showing multiple fluid dilated small bowel loops with some thickening suggesting possible enteritis 1. Sepsis due to possible enteritis: Suspect viral etiology v C.diff from recent antibiotic exposure. CT A/P showed multiple fluid dilated small bowel loops with some thickening suggestive of possible enteritis. S/p 30 ml/kg. Due to no fever and acuity of symptoms with noted improvement since presentation, monitored off antibiotics. Supportive care. Blood cultures 07/10/21 pending. Stool Cx 07/10/21 pending. 2. Recent Arm Abscess: RUE and evaluated by PCP and initiated on doxycyline for 10d course on 07/01/21. Appears resolved on 07/11 examination. Discontinued on discharge. 3. Lactic acidosis: suspect due to dehydration. Improved with fluids. 4. Possible ORION: likely d/t hypovolemia. Cr 1.08 on admit. No prior lab values. Repeat pending. 5. Elevated Lipase: Suspect due to enteritis. Clinically and radiologically no evidence of pancreatitis. 6. Hypertension: with hypotension as above, home meds held on admit. Resume as able. 7. Reactive Hyperglycemia: with no known DM. Suspect reactive. A1c 07/10/21 4.9. 8. Incidental findings: Admit CT noted fatty liver, hepatic cyst and mildly distended GB. To monitor as outpatient. 9. Code Status: Full code 10. DVT Prophylaxis: Lovenox SC Current living situation: Home Expected Disposition: Likely same Estimated discharge date: 07/11/21 Subjective: Patient seen on MDRs with Dr. Starks ([facility] attending). Patient reported feeling better. He last BM was ~ 4pm last night. She states that she still is having cramping abdominal pain with onset of diarrhea and nausea/emesis day of admit. Discussed potential discharge with able to tolerate diet and monitoring for BM. Physical Exam: Visit Vitals BP 103/69 (Patient Position: Lying) Pulse 71 Temp 97.8 F (36.6 C) (Oral) Resp 16 Ht 5' 6 (1.676 m) Wt 56.7 kg (125 lb) SpO2 99% BMI 20.18 kg/m General: NAD Eyes: EOMI ENT: neck supple Cardiovascular: Regular rate. Respiratory: Clear to auscultation Gastrointestinal: Soft, non tender Genitourinary: no suprapubic tenderness Musculoskeletal: No edema. Skin: warm, dry Neuro: Alert. Psych: Mood appropriate. Current Medications: buPROPion 150 mg Oral 2x Daily enoxaparin 40 mg Subcutaneous Daily Labs, Imaging and Studies reviewed: Recent Labs Lab 07/10/21 1255 HGB 15.2 HCT 44.7 PLT 394.0 Recent Labs Lab 07/10/21 1255 NA 137 K 3.8 CL 100 BUN 20 CREATININE 1.08* CALCIUM 11.6* LABALBU 5.6* Recent Labs Lab 07/10/21 1255 ALT 24 AST 92* ALKPHOS 87 BILITOT 1.0 No results for input(s): INR in the last 168 hours. documented in this encounter [facility] Emergency department Note 07-10-2021 Eric Hernandez MD - 07/10/2021 8:28 PM Sparkle Smith MST - 07/10/2021 7:44 PM Agustina Bonilla MST - 07/10/2021 6:41 PM Florence Brian RN - 07/10/2021 5:18 PM EST Note Date & Type Note Facility 07-10-2021 Emergency department Note 51F presents with nausea, vomiting, and diarrhea. Has had some abdominal discomfort but her pain is resolved at the time of my exam. Exam: well-appearing at the time of my exam but was uncomfortable-appearing when evaluated by the ED CHAU, afebrile, stable vitals, easy respirations, RRR, soft abdomen without guarding or significant tenderness at the time of my exam. Screening blood work is notable for a lipase of 2200 and a WBC count of 17. COVID screening is negative. A CT scan of the abdomen shows a mildly distended gallbladder and findings suggestive of enteritis. The appendix is not well characterized but there are no definite signs of appendicitis. A urinalysis shows no signs of a UTI. After IV fluids, antiemetics, and analgesics Ms. Gabriel reports feeling better. We discussed discharge home with oral antiemetics versus hospitalization for observation and further as-needed treatment and Ms. Gabriel would prefer to stay tonight. Admission to the observation unit was discussed with the CDU provider who deferred to [facility] citing the lipase of 2200. Nursing notes, past medical/surgical/family/social/p sychiatric history, and medication and allergy list reviewed. Agree with above unless otherwise noted. I have personally seen and examined this patient. I have fully participated in the care of this patient. I have reviewed all pertinent clinical information, including history, physical exam and plan. Eric Hernandez MD 07/10/[id number] 4w [address] Assumed care of pt at this time, report from Ella DIAMOND. Pt given water to drink Aquiles Campuzano states ok to give pain meds with pt bp ED Diagnosis and Summary 1. Abdominal pain, unspecified abdominal location 2. Nausea, vomiting and diarrhea 3. Elevated lipase 4. Lactate blood increased 5. Leukocytosis, unspecified type 6. Lab test negative for COVID-19 virus 7. Fatty liver 8. Hepatic cyst ED Summary Ill-appearing. Diaphoretic. Hypotensive @ 88/62, tachycardic @ 108, hypothermic @ 96.3, other vital signs normal. Patient is a 51-year-old female with past medical history of hypertension who presents to the emergency department in a wheelchair via private vehicle for evaluation of abdominal pain with associated symptoms of nausea/vomiting and diarrhea that started suddenly this morning while she was at work. Reports no known recent sick contacts. She describes the pain as sharp, non-radiating. She rates her pain severity as an 8 out of 10. She reports no alleviating and/or aggravating factors. Reported associated symptoms are chills, diaphoresis, nausea, vomiting, diarrhea, back pain, and dizziness. She denies having any fevers, rashes, chest pain, SOB, changes in urination, dark or bloody stools or numbness/tingling. Abdomen exam exhibits tenderness to palpation in the upper quadrants. Negative Mcgill's signs. Negative McBurney's point tenderness. No peritoneal signs. Abdomen is soft, non-distended with normal bowel sounds. No CVA tenderness bilateral. Screening labs, urinalysis, blood cultures, EKG, CT abdomen/pelvis, IV fluids, Fentanyl and Zofran. Labs and diagnostic imaging results reviewed. CBC showing a moderate leukocytosis of 17.0 with an elevated lactate level of 4.0. Second IV fluid bolus ordered. No anemia. No significant electrolyte imbalance. Troponin undetectable. Lipase markedly elevated at 2,199. Patient denies history of pancreatitis or alcohol abuse. Liver enzymes mostly unremarkable, however, mild elevation of AST at 92. Mild renal insufficiency noted with a GFR 53 and creatinine 1.08. Rapid COVID test is negative. CT results of the abdomen/pelvis shows multiple fluid dilated/distended small bowel loops central to the left abdomen, some thick-walled appearance in question hyperemia, correlate for enteritis of infectious or inflammatory etiology. There is additionally fluid-filled colon diffusely which correlates with patient's symptom of diarrhea. BISAP score for pancreatitis is a 1; and results for Binu's Criteria is a 2, therefore, suggesting severe pancreatitis unlikely. Hypotension and tachycardia improved after IV fluids. Lactate level improved to 1.0. Additional Fentanyl and Zofran ordered for nausea and pain control. Patient will be admitted to [facility]'s service for further evaluation and treatment with IV fluids and pain control. Labs and diagnostic images were reviewed with the patient in their entirety. Our plan for admission was also reviewed and the patient is agreeable to this plan. Patient had no further questions or complaints at the time of disposition and remained stable throughout the remainder of the ED course. DDx: Gastroenteritis, cholecystitis, cholelithiasis, pancreatitis, inflammatory bowel disease, colitis, perforated viscus, diverticulitis, constipation, bowel obstruction, dehydration, peptic ulcer disease, GERD Findings during ED visit: Pertinent Results: Labs: Labs Reviewed CBC WITH DIFFERENTIAL - Abnormal; Notable for the following components: Result Value White Blood Cells 17.0 (*) Absolute Neutrophil 13.6 (*) Absolute Isabella 0.7 (*) All other components within normal limits BASIC METABOLIC PANEL - Abnormal; Notable for the following components: CO2 18 (*) Glucose 204 (*) Creatinine 1.08 (*) Calcium 11.6 (*) All other components within normal limits LIPASE - Abnormal; Notable for the following components: Lipase 2,199 (*) All other components within normal limits HEPATIC FUNCTION PANEL - Abnormal; Notable for the following components: Total Protein 9.4 (*) Albumin 5.6 (*) AST 92 (*) All other components within normal limits LACTATE - Abnormal; Notable for the following components: Lactate 4.0 (*) All other components within normal limits URINE CHEM STRIP ONLY - Abnormal; Notable for the following components: Ketones 15 (*) All other components within normal limits SARS-COV-2 RAPID MOLECULAR TEST BLOOD CULTURE BLOOD CULTURE TROPONIN I GLOMERULAR FILTRATION RATE LACTATE TROPONIN I TROPONIN I Imaging: CT Abdomen Pelvis W/IV Contrast Final Result Fatty infiltration liver. 15 mm hepatic cyst. 5 mm question cyst or hemangioma dome of the liver, indeterminate. Gallbladder mildly distended with normal surrounding fat. Multiple fluid dilated/distended small bowel loops central to left abdomen. Some thick-walled appearance and question hyperemia. Correlate for enteritis of infectious or inflammatory etiology. There is additionally fluid-filled colon diffusely. Correlate clinically for diarrhea. Appendix not well characterized with otherwise normal pericecal fat. Question 6 mm appendix extending from the posterior aspect of the cecum. Normal surrounding fat. Prominent mesenteric lymph nodes. Bladder decompressed. Some luminal gas. Is this iatrogenic? Correlate with urinalysis. Question hysterectomy. Correlate with operative history. No hydronephrosis. Left nephrolithiasis. Impression: 51 y.o. with Abdominal pain, nausea/vomiting/diarrhea, elevated lipase, leukocytosis, lab test negative for COVID-19 virus, fatty liver and hepatic cyst Care coordinated with Dr. Hernandez, attending ER physician. Dispo and Plan: Patient will be admitted to [facility]'s service for further evaluation and treatment with IV fluids and pain control. Follow up: Pertinent chart review performed including recent visits, laboratory testing, procedures, and imaging if applicable. Nursing documentation of PMHx, Surg Hx, FHx, Soc Hx and medications reviewed and agree except as noted in the body of this note. Some or all of this note was created using voice recognition software. Efforts were made to proofread but errors in grammar, syntax, punctuation as well as transcriptional errors may persist. History Chief Complaint Patient presents with Emesis Diarrhea Patient's medications, allergies, past medical, surgical, social and family histories were reviewed and updated as appropriate. HPI Assessment: 51 y.o. female with a history of hypertension who was seen in the Emergency Department and evaluated for a chief complaint of abdominal pain, with an onset of suddenly and duration of constant. Location of generalized over her abdomen, in the context of while she was at work this morning. Patient describes the pain as sharp, non-radiating, and severity is rated as 8 out of 10. Alleviating factors none. Aggravating factors none. Associated symptoms are chills, diaphoresis, nausea, vomiting, diarrhea, back pain, and dizziness. Review of Systems Constitutional: Positive for chills and diaphoresis. Negative for fatigue and fever. HENT: Negative for congestion, ear pain, postnasal drip, rhinorrhea, sinus pressure, sore throat and trouble swallowing. Eyes: Negative for pain, discharge and redness. Respiratory: Negative for cough, chest tightness, shortness of breath and wheezing. Cardiovascular: Negative for chest pain and palpitations. Gastrointestinal: Positive for abdominal pain, diarrhea, nausea and vomiting. Negative for abdominal distention, anal bleeding, blood in stool and constipation. Endocrine: Negative for polydipsia, polyphagia and polyuria. Genitourinary: Negative for difficulty urinating, dysuria, flank pain, frequency, hematuria and urgency. Musculoskeletal: Positive for back pain. Negative for joint swelling and myalgias. Skin: Negative for color change, pallor and rash. Neurological: Positive for dizziness. Negative for syncope, weakness, light-headedness, numbness and headaches. Hematological: Negative for adenopathy. Does not bruise/bleed easily. Psychiatric/Behavioral: Negative for agitation, confusion, self-injury and suicidal ideas. Physical Exam ED Triage Vitals [07/10/21 1222] BP (!) 88/62 Heart Rate 108 Resp 18 Temp (!) 96.3 F (35.7 C) Temp src SpO2 100 % Weight 123 lb (55.8 kg) Height 5' 6 (1.676 m) BMI (Calculated) 19.86 Physical Exam Vitals and nursing note reviewed. Constitutional: General: She is not in acute distress. Appearance: Normal appearance. She is normal weight. She is ill-appearing and diaphoretic. She is not toxic-appearing. HENT: Head: Normocephalic and atraumatic. Right Ear: Tympanic membrane, ear canal and external ear normal. Left Ear: Tympanic membrane, ear canal and external ear normal. Nose: Nose normal. No congestion or rhinorrhea. Mouth/Throat: Mouth: Mucous membranes are moist. Pharynx: Oropharynx is clear. No oropharyngeal exudate or posterior oropharyngeal erythema. Eyes: Extraocular Movements: Extraocular movements intact. Conjunctiva/sclera: Conjunctivae normal. Pupils: Pupils are equal, round, and reactive to light. Cardiovascular: Rate and Rhythm: Regular rhythm. Tachycardia present. Pulses: Normal pulses. Heart sounds: Normal heart sounds. No murmur heard. Pulmonary: Effort: Pulmonary effort is normal. No respiratory distress. Breath sounds: Normal breath sounds. No stridor. No wheezing, rhonchi or rales. Abdominal: General: Abdomen is flat. Bowel sounds are normal. There is no distension. Palpations: Abdomen is soft. There is no mass. Tenderness: There is generalized abdominal tenderness. There is no right CVA tenderness, left CVA tenderness, guarding or rebound. Hernia: No hernia is present. Musculoskeletal: General: No swelling, tenderness, deformity or signs of injury. Normal range of motion. Cervical back: Normal range of motion and neck supple. No rigidity or tenderness. Lymphadenopathy: Cervical: No cervical adenopathy. Skin: General: Skin is warm. Capillary Refill: Capillary refill takes less than 2 seconds. Findings: No bruising, erythema or rash. Neurological: General: No focal deficit present. Mental Status: She is alert and oriented to person, place, and time. Mental status is at baseline. Cranial Nerves: No cranial nerve deficit. Sensory: No sensory deficit. Motor: No weakness. Coordination: Coordination normal. Psychiatric: Mood and Affect: Mood normal. Behavior: Behavior normal. Thought Content: Thought content normal. Judgment: Judgment normal. ED Course Procedures Medical Decision Making Aquiles Campuzano APRN CNP 07/10/21 1806 Aquiles Campuzano APRN CNP 07/10/21 1826 Aquiles Campuzano APRN CNP 07/10/21 1830 Pt to triage via wheelchair. Reports emesis that began on the way to work. Pt unable to sit up in wheelchair. Diaphoretic. Pt skin clammy. Complains of abdominal pain. Respirations easy, regular and unlabored. No SOB noted. NAD noted. GCS 15. A&Ox3. Skin warm, dry and intact. documented in this encounter [facility] History and physical note 07-10-2021 Carlos Weldon MD - 07/10/2021 6:14 PM EST Note Date & Type Note Facility 07-10-2021 History and physical note [facility] / [facility] History and Physical 07/10/21 Kiara Gabriel 1970 [id number] Assessment/Plan: Kiara Gabriel is a 51 y.o. female with a history of hypertension who presented to [facility] 07/10/2021 with acute onset vomiting, diarrhea, abdominal pain of 3 hours duration. In the ED mets SIRS criteria with RR 33, temp 96.3, WBC 17 and hypotension with BP 88/62. Other abnormal labs included Glucose 204, Cr 1.08, AST 92, lactate 4, Lipase [address] showing multiple fluid dilated small bowel loops with some thickening suggesting possible enteritis 1. Sepsis due to enteritis: Suspect viral etiology. Initial workup as above. Stool workup ordered. S/p 30 ml/kg. Blood cultures pending. Due to no fever and acuity of symptoms with noted improvement since presentation, monitored off antibiotics. Supportive care. 2. Lactic acidosis: suspect due to dehydration. Improved with fluids. 3. Elevated Lipase: Suspect due to enteritis. Clinically and radiologically no evidence of pancreatitis. 4. Hypertension: with hypotension as above, home meds held. 5. Hyperglycemia: with no known DM. Suspect reactive. Check A1c. 6. Incidental findings: Admit CT noted fatty liver, hepatic cyst and mildly distended GB. To monitor as outpatient. 7. Code Status: Full code 8. DVT Prophylaxis: Lovenox SC Current living situation: Home Expected Disposition: Likely same Estimated discharge date: ~07/11/21 or 07/12/21 Chief Complaint: Diarrhea, nausea and vomiting History of Present Illness: Kiara Garbiel is a 51 y.o. female with a history of hypertension who presented to [facility] 07/10/2021 with acute onset vomiting, diarrhea, abdominal pain of 3 hours duration. States she was fine and without any symptoms until about 11 am today. Then she started experiencing some abdominal discomfort and started having diarrhea and multiple episodes of vomiting. States her stool was watery with no blood or mucous. [place] very weak and slightly dizzy. States her whole body was hurting with cramps. Then decided to come to ED. She denies eating from outside or recent travel or exposure to sick contacts. ROS: 10 systems were reviewed and negative, except as noted above Past Medical, Surgical, Social, Family History: Past Medical History: Diagnosis Date HTN (hypertension) History reviewed. No pertinent surgical history. Social History Socioeconomic History Marital status: Spouse name: Not on file Number of children: Not on file Years of education: Not on file Highest education level: Not on file Occupational History Not on file Tobacco Use Smoking status: Former Smoker Smokeless tobacco: Never Used Substance and Sexual Activity Alcohol use: Not Currently Drug use: Not Currently Sexual activity: Not on file Other Topics Concern Not on file Social History Narrative Not on file Social Determinants of Health Financial Resource Strain: Difficulty of Paying Living Expenses: Food Insecurity: Worried About Running Out of Food in the Last Year: Ran Out of Food in the Last Year: Transportation Needs: Lack of Transportation (Medical): Lack of Transportation (Non-Medical): Physical Activity: Days of Exercise per Week: Minutes of Exercise per Session: Stress: Feeling of Stress : Social Connections: Frequency of Communication with Friends and Family: Frequency of Social Gatherings with Friends and Family: Attends Spiritism Services: Active Member of Clubs or Organizations: Attends Club or Organization Meetings: Marital Status: Intimate Partner Violence: Fear of Current or Ex-Partner: Emotionally Abused: Physically Abused: Sexually Abused: History reviewed. No pertinent family history. Home Medications: No current facility-administered medications on file prior to encounter. Current Outpatient Medications on File Prior to Encounter Medication Sig Dispense Refill buPROPion (WELLBUTRIN SR) 150 MG 12 hr tablet Take 150 mg by mouth two times a day. 2nd dose to be taken before 6pm [DISCONTINUED] buPROPion HCl (WELLBUTRIN PO) Take by mouth. [DISCONTINUED] lisinopril (PRINIVIL,ZESTRIL) 10 MG tablet Take 10 mg by mouth daily. lisinopril (PRINIVIL,ZESTRIL) 40 MG tablet Take 40 mg by mouth daily. Allergies Allergen Reactions Penicillins Other (See Comments) Unsure of reaction, states was when she was a kid. Physical Exam: Visit Vitals BP 134/80 Pulse 94 Temp (!) 96.3 F (35.7 C) Resp 28 Ht 5' 6 (1.676 m) Wt 55.8 kg (123 lb) SpO2 100% BMI 19.85 kg/m General: NAD Eyes: EOMI ENT: neck supple Cardiovascular: Regular rate. Respiratory: Clear to auscultation Gastrointestinal: Soft, non tender, BS++ Genitourinary: no suprapubic tenderness Musculoskeletal: No edema Skin: warm, dry Neuro: Alert, awake and oriented x 4, no focal neurological deficits Psych: Mood appropriate. Labs, Imaging, and Studies reviewed: Recent Labs Lab 07/10/21 1255 HGB 15.2 HCT 44.7 PLT 394.0 Recent Labs Lab 07/10/21 1255 NA 137 K 3.8 CL 100 BUN 20 CREATININE 1.08* CALCIUM 11.6* LABALBU 5.6* Recent Labs Lab 07/10/21 1255 ALT 24 AST 92* ALKPHOS 87 BILITOT 1.0 No results for input(s): INR in the last 168 hours. 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 DNR Documentation Latest Code Status on File Code Status Date Activated Date Inactivated Comments Full Code 07/11/2021 8:43 AM Full Code 07/10/2021 8:14 PM 07/11/2021 8:43 AM Reason for Referral Specialty Diagnoses / Procedures Referred By Zulay ellison Referred To Contact Skyler Philip PA [facility] [address] [place] [address] Referral ID Status Reason Start Date Expiration Date V isits Requested Visits Authorized [id number] Incomplete 07/11/2021 08/08/2022 1 1 Additional Source Comments INFORMATION SOURCE (unrecogn ized section and content) DATE CREATED AUTHOR AUTHOR'S ORGANIZ ATION 11/24/2017 [facility] DATE CREATED AUTHOR AUTHOR'S ORGANIZ ATION 02/02/2020 [facility] [place] DATE CREATED AUTHOR AUTHOR'S ORGANIZ ATION 07/16/2021 [facility] DATE CREATED AUTHOR AUTHOR'S ORGANIZ ATION 08/27/2022 [facility] DATE CREATED AUTHOR AUTHOR'S ORGANIZ ATION 03/20/2023 [facility] Reason for Visit (unrecogniz ed section and content) Specialty Diagnoses / Procedures Referred By Contac t Referred To Contact Diagnoses Fatty liver Hepatic cyst Lactate blood increased Nausea, vomiting and diarrhea Elevated lipase Abdominal pain, unspecified abdominal location Leukocytosis, unspecified type Lab test negative for COVID-19 virus Procedures Referral ID Status Reason Start Date Expiration Date Visits Re quested Visits Authorized [id number] 1 1 Scheduled Active and Recently Administ ered Medications (unrecognized section and content) Continuous Medication Order 07/09/2021 07/10/2021 07/11/2021 0.9% NaCl infusion Intravenous, at 125 mL/hr, CONTINUOUS, Starting on Thu07/10/21 at 2100, Until Debora 07/11/21 at 1629 [id number] (New Bag - Provider: Claudia Bowen, LOBO) 1008 (Stopped - Provider: Beth York RN) PRN Medication Order 07/09/2021 07/10/2021 07/11/2021 aluminum-magnesium hydroxide 200-200 MG/5ML suspension 30 mL 30 mL, Oral, EVERY 6 HOURS PRN, Indigestion, Starting on Thu07/10/21 at 2014, Until Debora 07/11/21 at 1629 calcium carbonate (TUMS) chewable tablet 1,000 mg 1,000 mg, Oral, EVERY 4 HOURS PRN, Heartburn, Starting on Thu07/10/21 at 2014, Until Debora 07/11/21 at 1629 For electrolyte abnormalities subsequent to initial labs (refer to the [facility] Electrolyte Replacement Orders) Other, DAILY PRN, For electrolyte abnormalities, Starting on Thu07/10/21 at 2014, Until Debora 07/11/21 at 1629, For Potassium level <=3.9 or Magnesium level <=2.0, please use Order Set #100 to order medications and repeat labs. HYDROmorphone (DILAUDID) injection 0.5 mg 0.5 mg, IV Push, EVERY 4 HOURS PRN, Severe Pain, Starting on Thu07/10/21 at 2014, Until Debora 07/11/21 at 1629, Caution: This medication looks and/or sounds like another medication. Ondansetron (ZOFRAN-ODT) disintegrating tablet 4 mg(Linked Group 1) 4 mg, Oral, EVERY 6 HOURS PRN, Nausea and/or Vomiting, Starting on Thu07/10/21 at 2014, Until Debora 07/11/21 at 1629 ondansetron hcl (ZOFRAN) injection 4 mg(Linked Group 1) 4 mg, IV Push, EVERY 6 HOURS PRN, Nausea and/or Vomiting, For nausea or vomiting unrelieved by oral Zofran after 30 minutes or if unable to tolerate oral intake, Starting on Thu07/10/21 at 2014, Until Debora 07/11/21 at 1629, Caution: This medication looks and/or sounds like another medication. polyethylene glycol 3350 (GLYCOLAX, MIRALAX) packet 17 g 17 g, Oral, DAILY PRN, Constipation, constipation, Starting on Thu07/10/21 at 2014, Until Debora 07/11/21 at 1629, This is a maintenance laxative, begin for prevention of constipation. Linked Groups Order Group 1: Ondansetron (ZOFRAN-ODT) disintegrating tablet 4 mgJump to med 4 mg, Oral, EVERY 6 HOURS PRN, Nausea and/or Vomiting, Starting on Thu07/10/21 at 2014, Until Debora 07/11/21 at 1629 Or ondansetron hcl (ZOFRAN) injection 4 mgJump to med 4 mg, IV Push, EVERY 6 HOURS PRN, Nausea and/or Vomiting, For nausea or vomiting unrelieved by oral Zofran after 30 minutes or if unable to tolerate oral intake, Starting on Thu07/10/21 at 2014, Until Debora 07/11/21 at 1629
Caution: This medication looks and/or sounds like another medication.
FOR RECORDS PERTAINING TO PATIENTS WHO ARE OR HAVE BEEN ENROLLED IN A CHEMICAL DEPENDENCY/SUBSTANCEABUSE PROGRAM, SOME INFORMATION MAY BE OMITTED. This clinical summary was aggregated from multiple sources. Caution should be exercised in using it in the provision of clinical care. This summary normalizes information from multiple sources, and as a consequence, information in this document may materially change the coding, format and clinical context of patient data. In addition, data may be omitted in some cases. CLINICAL DECISIONS SHOULD BE BASED ON THE PRIMARY CLINICAL RECORDS. [email or web address] provides no warranty or guarantee of the accuracy or completeness of information in this document.
[2023-07-17 18:44] VITALS: BP 139/84; PULSE 86; RESP 15; O2SAT 97
[2023-07-17] MEDS: Ciprofloxacin 500 MG Tablet PO (19:40)
[2023-07-17] MEDS: MethylPREDNISolone 125 MG/2 ML Vial 80 MG IV (19:40)
[2023-07-17] MEDS: metroNIDAZOLE 500 MG Tablet PO (19:40)
[2023-07-17 20:05] VITALS: BP 118/62; PULSE 80; RESP 18; TEMP 36.4; O2SAT 99
== END 2023-07-17 20:07 | disposition home or self-care (01) ==
PROVIDERS: Emergency Provider Emergency Medicine; PCP Physician Assistant; Visit Provider Emergency Medicine
DX: N13.2 Hydronephrosis with renal and ureteral calculous obstruction (principal); K50.00 Crohn's disease of small intestine without complications; R10.9 Unspecified abdominal pain; R11.2 Nausea with vomiting, unspecified; I10 Essential (primary) hypertension; Z79.899 Other long term (current) drug therapy; F17.290 Nicotine dependence, other tobacco product, uncomplicated
CPT/HCPCS: 74177; 80053; 81001; 83690; 85025; 96361; 96372; 96374; 96375; 96376; 99284; J7030; Q9967; A4216; J2405

== ENCOUNTER 2023-07-23 11:33 | Day surgery (SDC) | payer OTHER, SELFPAY ==
[2023-07-23 11:58] VITALS: BP 97/73; PULSE 78; RESP 12; TEMP 36.4; O2SAT 100; BMI 22.0
--- NOTE | 2023-07-23 12:03 | DCINST_ITS ---
Discharge Instructions Diet Discharge Diet: No restrictions Activity Discharge Activity: Return to Normal Activity Dressing / Incision Call your doctor if you observe: Fever of 101 or Higher, Inability to urinate and Inability to have a bowel movement Follow Up Care Please Follow Up With: Belgica Eli MD When: The office will call to make arrangements for follow-up. Test Results: Test results from this visit will be discussed in further detail at your follow- up appointment, if applicable. Discharge Plan Admission Attending Provider: Belgica Eli Primary Care Provider: Debbie William Discharge Orders/Prescriptions Prescriptions: New oxycodone-acetaminophen [Percocet] 5-325 mg tablet 1 tab PO Q8H PRN (Reason: pain) 3 Days Qty: 9 0RF phenazopyridine [Pyridium] 200 mg tablet 200 mg PO TID PRN PRN (Reason: Bladder Spasms) 7 Days Qty: 30 1RF Continued lisinopril 10 mg Tablet 10 mg PO DAILY hydrocodone-acetaminophen 5-325 mg tablet 1 tab PO Q6H PRN PRN (Reason: Pain) 3 Days Qty: 10 0RF prednisone 20 mg tablet 40 mg PO DAILY 21 Days Qty: 42 0RF ciprofloxacin HCl 500 mg tablet 500 mg PO BID Qty: 42 0RF Probacap 10 billion cell capsule 10,000 mmu cells PO BID Referrals / Follow Up: Debbie William PA [Primary Care Provider] - Disposition Disposition (needs filled in before D/C Order can be placed): Home, Self Care
--- NOTE | 2023-07-23 12:05 | PCM.OPRPT ---
Report of Operation Date of Procedure: 07/23/23 Pre-Operative Diagnosis: left ureteral stone with hydronephrosis Post-Operative Diagnosis: same Surgery/Procedure Performed:: cystoscopy with left retrograde pyelogram, left ureteroscopy, left ureteral stent insertion Surgeon: Belgica Eli Type of Anesthesia: General Special Medications: None Specimen's removed: None Description of Procedure: The patient is a 53-year-old female who was seen in the emergency room earlier this week with abdominal pain, nausea vomiting and diarrhea. She was found to have a left hydroureteronephrosis down to a possible left distal ureteral calcification. She now presents for further evaluation and management. Informed consent was obtained. The patient was taken to the operating room and placed on the operating room table. Anesthesia monitored the head, neck, airway, IV access and vital signs throughout the case. Once anesthesia was appropriately administered, the patient was placed into dorsolithotomy position and was prepped and draped in usual sterile fashion. The cystoscope was inserted through the urethra under direct visualization into the urinary bladder. There were no areas of abnormal mucosa including mass, erythema, ulceration or foreign body. The ureteral orifices were located in correct anatomic position. The left ureteral orifice was gently intubated with an 8 [place] cone-tip catheter and contrast was injected in retrograde fashion under fluoroscopic visualization. An area of acute narrowing was identified in the distal third of the ureter. There is no obvious stone seen. A 0.035 Glidewire was passed through the left ureteral orifice and an attempt was made at passage of a semirigid ureteroscope. The ureteroscope entered the distal aspect of the ureter without difficulty. This would not easily pass through the area of narrowing and a second Glidewire was utilized. I still could not gain access to the ureter proximal to the narrowing. An attempt was then made at passing a flexible ureteroscope over the Glidewire, and I could still not obtain access. At this time the decision was made to place a ureteral stent. The cystoscope was then used for placement of a 6 [place] 26 cm JJ stent over the safety wire. Good positioning was achieved in the renal pelvis as well as the urinary bladder. The patient's bladder was then emptied and the case was terminated. The patient was awakened and taken to the recovery room in good condition. There were no complications during this procedure. Grafts/Implants Used: 6 x 26 cm JJ stent Complications none Admit VTE Documentation VTE Present on Admission: Yes VTE Mechan Device Prophylaxis: SCD's VTE Pharm Prophylaxis ordered?: No Reason prophylaxis not ordered:: Treatment Not Indicated
[2023-07-23] MEDS: Lactated Ringers 1,000 ML 15 ML IV (12:07)
--- OUTSIDE RECORDS SUMMARY | 2023-07-23 12:07 | XMS RPT_ITS | CCD ---
Author Name Unknown Address [address] [place] [address] Organization [facility] Care Team Providers Care Manager Development Name Role Phone Israel Fritz Unavailable Unavailable Unavailable, Family Physician Unavailable Un available Unavailable, Family Physician Unavailable Un available Israel Fritz Unavailable Unavailable Unavailable, Family Physician Unavailable Un available Unavailable, Family Physician Unavailable Un available Israel Fritz Unavailable Unavailable Unavailable Primary Care Provider Unavailabl e EMILI WILLIAM Consulting Unavailable JOSE HANSON PA-C Admitting Unavailab JOSE Plasencia PA-C Primary Care Unavailab le JOSE HANSON PA-C Attending Unavailab le PROVIDER, UNKNOWN Consulting Unavailable EMILI WILLIAM Primary Care Unavailable EMILI WILLIAM Consulting Unavailable EMILI WILLIAM Attending Unavailable EMILI WILLIAM Admitting Unavailable PROVIDER, UNKNOWN Consulting Unavailable Emili William PA-C Unavailable Emili William PA-C Unavailable [phone] (Atkins), [facility] Unavailable Dr. Bean Morris MD Unavailable Jesse STRAIGHT EDGER, Zo Unavailable Odalis Lee PA-C Unavailable [phone] Dhaval Pace MD Unavailable Day STRAIGHT EDGER, Nataliya Unavailable Unavailable Allyson Lozano MA Unavailable Unavailable Christopher MARTINEZN, Jessica Unavailable Unavailable Anastasia Grover PA-C Unavailable Jose Hanson PA-C Unavailable KristinLuana C Unavailable Unavailable Estrella DIAMOND, Anastasia Noble Unavailable Unavaila ble Marito STRAIGHT EDGER, Salvador Unavailable Unavailable Mutersbaugh STRAIGHT EDGER, Anisa K Unavailable Unavai labcarson Chu STRAIGHT EDGER, Supriya Connelly Unavailable Unavailab le Arsh STRAIGHT EDGER, Keesha Patiño Unavailable Unavailab carson Winter MA, Delfina Unavailable Unavailable Kelsy DOWNEY, Ramona K Unavailable James VELA, Maximo Noble Unavailable Susi STRAIGHT EDGER, Xenia Unavailable Unavailabl e Unavailable Unavailable Allergies Allergy Classification Reported Allergen(s) Allergy Type Date of Onset Reaction(s) Facility (1 source) Penicillins Propensity to adverse reactions to drug 2 Other (See Comments) [facility] (1 source) Penicillins Drug allergy (disorder) [facility] (3 sources) Penicillin V Drug Allergy [facility]. Medications Current Medications Medication Drug Class(es) Dates Sig (Normalized) Sig (Original) 12 hr buPROPion hydrochloride 150 mg extended release oral tablet (12 sources) Aminoketone Start: 06-22-2023 buPROPion HCL SR 150 mg tablet,12 hr sustained-release ; 1 (one) tablet twice a day for 0 days Quantity: 60 {Tablet} Refills: 2 Ordered: 22-Jun-2023 ELIZABETH William Start: 22-Jun-2023 Completed/Discontinued Medications Medication Drug Class(es) Dates Sig (Normalized) Sig (Original) acetaminophen 325 mg / HYDROcodone bitartrate 5 mg oral tablet (3 sources) Opioid Agonist Start: 01-30-2017 End: 05-26-2018 take 1 tablet by mouth every six hours as needed for pain [place] 5-325 MG Oral Tablet ; 1 (one) Tablet every 6 hours as needed for pain for 0 days Quantity: 28 {Tablet} Refills: 0 Ordered: 26-May-2018 TESS Molina Start: 30-Jan-2017 End: 26-May-2018 Status: Inactive Comments: Medication taken as needed. Problems Active Problems Problem Classification Problem Date Documented Da te Episodic/Chronic Abdominal pain (7 sources) Abdominal pain; Translations: [Unspecified abdominal pain] Episodic Acute bronchitis (3 sources) Acute bronchitis 10-31-2013 Episodic Chronic obstructive pulmonary disease and bronchiectasis (6 sources) Bronchitis; Translations: [Bronchitis, not specified as acute or chronic] 11-10-2013 Episodic Conditions associated with dizziness or vertigo (6 sources) Vertigo; Translations: [Dizziness and giddiness] 12-25-2015 Episodic Diseases of white blood cells (1 source) Leukocytosis; Translations: [Elevated white blood cell count, unspecified] Chronic Essential hypertension (20 sources) Hypertensive disorder; Translations: [Essential (primary) hypertension] 03-24-2023 Chronic Headache; including migraine (3 sources) Headache; Translations: [Headache] 03-25-2012 Episodic Immunizations and screening for infectious disease (1 source) Contact with or exposure to other viral diseases; Translations: [Lab test negative for COVID-19 virus] Episodic Nausea and vomiting (1 source) Nausea, vomiting and diarrhea; Translations: [Nausea with vomiting, unspecified] Episodic Other circulatory disease (6 sources) Elevated blood pressure; Translations: [Elevated blood-pressure reading, without diagnosis of hypertension] 03-18-2021 Episodic Other circulatory disease (3 sources) Elevated blood pressure reading without diagnosis of hypertension 03-25-2012 Episodic Other liver diseases (1 source) Steatosis of liver; Translations: [Fatty (change of) liver, not elsewhere classified] Chronic Other liver diseases (1 source) Liver cyst; Translations: [Other specified diseases of liver] Chronic Other liver diseases (1 source) High lipase level in serum; Translations: [Abnormal levels of other serum enzymes] Episodic Other nervous system disorders (3 sources) Compression injury of nerve; 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, 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 Other screening for suspected conditions (not mental disorders or infectious disease) (20 sources) Lactic acidemia; Translations: [Other specified abnormal findings of blood chemistry] Onset: 08-25-2022 Episodic Other skin disorders (6 sources) Ruptured epidermal cyst; Translations: [Epidermal cyst] 03-24-2023 Episodic Other skin disorders (6 sources) Skin lesion; Translations: [Disorder of the skin and subcutaneous tissue, unspecified] 03-24-2023 Episodic Other upper respiratory infections (3 sources) Sinusitis; Translations: [Chronic sinusitis, unspecified] 06-22-2019 Chronic Other upper respiratory infections (12 sources) Acute maxillary sinusitis; Translations: [Acute maxillary sinusitis, unspecified] 01-27-2020 Episodic Residual codes; unclassified (12 sources) Tobacco user; Translations: [Tobacco use] 03-24-2023 Episodic Residual codes; unclassified (6 sources) Viral syndrome; Translations: [Other general symptoms and signs] 03-24-2023 Episodic Residual codes; unclassified (6 sources) Tobacco use and exposure - finding; Translations: [Tobacco use] 03-25-2023 Episodic Screening and history of mental health and substance abuse codes (6 sources) Patient encounter status; Translations: [Encounter for screening for depression] 03-24-2023 Episodic Septicemia (except in labor) (2 sources) Sepsis without acute organ dysfunction; Translations: [Sepsis, unspecified organism] Onset: 07-10-2021 Episodic Spondylosis; intervertebral disc disorders; other back problems (6 sources) Annular tear of cervical disc; Translations: [Other cervical disc degeneration, unspecified cervical region] 01-29-2017 Chronic Spondylosis; intervertebral disc disorders; other back problems (18 sources) Backache; Translations: [Dorsalgia, unspecified] 03-18-2021 Episodic Unclassified (3 sources) deliveries 03-24-2023 Past or Other Problems Problem Classification Problem Date Documented Da te Episodic/Chronic Headache; including migraine (3 sources) Headache; including migraine 04-07-2022 Unclassified (3 sources) Well adult female - The patient feels well with minor complaints (Pt wanting Wellbutrin renewed, used it to stop smoking a few years ago.). The patient is not using any method of contraception at this time. The patient has a balanced diet. The patient does not exercise. The patient sleeps 5 hours per night. 03-25-2023 Unclassified (3 sources) Well adult female - The patient feels well with no complaints, has good energy level and is sleeping well. The patient has a balanced diet. The patient does not exercise. The patient sleeps 6 hours per night. 03-21-2022 Unclassified (3 sources) Skin ulcer/open sore - Symptoms include drainage and swelling. Symptoms are located on the right elbow. Onset was gradual month(s) ago (was a cyst and burst 2 days ago after being in the hot tub). The patient describes this as moderate in severity and worsening. Associated symptoms do not include fever. Note for Skin ulceration : Has been putting antibiotic ointment on it. 07-01-2021 Unclassified (3 sources) Well adult female - The patient feels well with no complaints, has good energy level and is sleeping poorly. The patient has a balanced diet and takes supplemental vitamins. The patient does not exercise. The patient sleeps 6 hours per night. 03-18-2021 Unclassified (3 sources) Back pain - The onset of the back pain has been sudden (tripped over her friends dog) and has been occurring in a persistent pattern for 1 week. The course has been constant. The pain is characterized as a dull ache, stabbing and shooting. The pain is located in the lower back (mainly on the left side) and does not radiate. The pain is precipitated by another event (Patient reports that she fell when tripping over a friend's dog and hit her back on her friend's couch). The symptoms are aggravated by exertion, prolonged sitting and lying down and have no relieving factors. The pain has been associated with back stiffness, while there has been no associated arthritis of peripheral joints, flank pain, hip pain, history of back surgery, history of disc prolapse, leg weakness or paresthesias in leg. Note for Back pain : when she goes to stand it aggravates it. She has taken advil, tried Ice, heat, chiropractor, tens unit with little relief of her symptoms 08-03-2020 Unclassified (3 sources) Hypertension - The JNC classification is Stage 2 hypertension - >=160 or >=100 The symptoms include fatigue and headache (yesterday had a pounding headache, been having more headaches lately). Habits include tobacco use (would like to get a prescription for chantix today if possible) and home blood pressure monitoring (will check occasionally, Yesterday at noon was 168/100, later in afternoon was 171/112, this morning was 160/102. The BP machine is new from [employer].). Note for Hypertension : Her headache is better today than yesterday.Patient reports that she has been checking her blood pressure once every 1-2 weeks and that is has been running in the 130s other than the past few days. Patient denies any palpitations, chest pain, shortness of breath, or changes in vision. Patient states that her blood pressure has been elevated for the past 2-3 years. 04-24-2020 Unclassified (3 sources) Well adult female - The patient feels well with no complaints, has good energy level and is sleeping poorly. The patient is not using any method of contraception at this time. The patient has a balanced diet (keto) and takes supplemental vitamins. The patient does not exercise. The patient sleeps 6 (wakes up often) hours per night. Note for Well adult female : Has spot on nose wants looked at - has been there x 2 months. 02-23-2020 Unclassified (3 sources) Abdominal pain - The onset of the abdominal pain has been gradual and has been occurring in an intermittent (Had an episode about 4-5 weeks ago that lasted x 5-6 days and then started again this week (4 days ago)) pattern for 2 months. The course has been recurrent. The pain is described as moderate. The pain is located in the entire abdomen (points more to the lower abd) and does not radiate. The symptoms have no aggravating factors but have no relieving factors. The symptoms have been associated with bloating, diarrhea, nausea and vomiting (none x 2 days), while the symptoms have not been associated with chest pain, constipation, dysuria, fever, heartburn or hematuria. Note for Abdominal pain : Had a fast food hamburger before initial symptoms started 4-5 weeks ago. Had boneless wings this week but already had the pain by that point.Took aleve and pepto bismol.Feeling a little better today.No fever.Vomiting/diarrhea provides temporary relief. 01-27-2020 Unclassified (3 sources) Cold Symptoms - Symptoms include nasal congestion, runny nose, ear pain (left), sore throat, dry cough, general malaise, headache and facial pain, but do not include fever or chills. The onset was gradual (had some of the sinus stuff going on when at vacation and then started to get better- was gone for 16 days and then when they come back, thursday she started with symptoms.). The symptoms occur constantly. The patient describes this as moderate in severity and worsening. Current treatment includes non-prescription cold medication (nyquil, this am she had taken tylenol sinus medication.). The patient has not been exposed to an individual with similar symptoms. Patient denies history of seasonal allergies, recurrent sinusitis, recurrent strep pharyngitis, asthma, tonsillectomy or recurrent ear infections. Note for Upper respiratory infection : Nausea and a little dizzy.Recently flew on airplane. 06-22-2019 Unclassified (3 sources) Well adult female - The patient feels well with minor complaints, has good energy level and is sleeping poorly. The first day of the last menstrual period was : (2017 (full hysterectomy)). The patient is not using any method of contraception at this time. The patient has a balanced diet and takes supplemental vitamins. The patient does not exercise. The patient sleeps 6 hours per night. 04-22-2019 Unclassified (3 sources) Cold Symptoms - Symptoms include nasal congestion, ear fullness, sore throat, dry cough, general malaise and headache, but do not include fever. The onset was gradual 3 week(s) ago. The patient describes this as moderate in severity and worsening. Current treatment includes non-prescription cold medication. Risk factors include smoking. 05-26-2018 Unclassified (3 sources) Neck pain - The onset of the neck pain has been gradual and has been occurring in a persistent pattern. The course has been constant. The neck pain is described as a moderate to severe dull aching. The neck pain is described as being located in the upper shoulders and right lateral neck and radiating to the radial aspect of right arm (goes down her right arm and stings and numbness.). The pain is relieved by nothing (been going to chiro for 2 wks but not helping, steroids in beginning but didn't notice improvement with them; chiro is planning to do MRI next week). Previous evaluations have been completed by a chiropractor. There has been no previous neck surgery. There has been no use of assistive devices. Previous medications have included anti-inflammatory medication (not helping and also has iced it). The pain interferes with sleep moderately. Note for Neck pain : Did have an injury about 3 months ago. Hope off the boat and landed on her neck. 01-16-2017 Unclassified (3 sources) Dizziness - The onset of the dizziness has been acute and has been occurring in a persistent pattern for 2 hours. The course has been increasing. The dizziness is characterized as lightheadedness and feeling in the head. There has been associated nausea and headache, while there has been no associated tinnitus, ear pain, ear fullness, neck pain or visual changes. Note for Dizziness : Describes vertigo sx. 12-25-2015 Unclassified (3 sources) Well adult female - The patient feels well with no complaints, has good energy level and is sleeping well. The first day of the last menstrual period was : (01/07/2015). The patient has a balanced diet and takes supplemental vitamins. The patient does not exercise. The patient sleeps 6 hours per night. Note for Well adult female : Saw Dr. Hameed for routine exam yesterday. 02-14-2015 Unclassified (3 sources) Cold Symptoms - Symptoms include sneezing, nasal congestion, runny nose, purulent discharge, ear fullness, sore throat, hoarseness, dry cough, productive cough, fever, chills, general malaise, headache and facial pain. The onset was gradual 6 day(s) ago. The symptoms occur constantly. The patient describes this as moderate in severity and worsening. Current treatment includes non-prescription cold medication and allergy medications. Risk factors include smoking. The patient has been exposed to an individual with similar symptoms. Patient denies history of seasonal allergies, recurrent sinusitis, recurrent strep pharyngitis, asthma, tonsillectomy or recurrent ear infections. 10-31-2013 Unclassified (3 sources) Cold Symptoms - Symptoms include nasal congestion, sore throat (intermittent), hoarseness, dry cough (+ chest congestion, SOB, and wheezng), chills, general malaise and headache, but do not include runny nose, ear pain, ear fullness or fever. The onset was gradual 2 week(s) ago. The symptoms occur constantly. The patient describes this as moderate in severity and unchanged. Current treatment includes non-prescription cold medication (OTC cough pills, nyquil, mucinex-D). Risk factors include smoking. The patient has not been exposed to an individual with similar symptoms. Medical history includes tonsillectomy, but patient denies history of seasonal allergies, recurrent sinusitis, recurrent strep pharyngitis, asthma or recurrent ear infections. 04-04-2013 Unclassified (3 sources) high bp - Pt is here today complaining of her blood pressure running high since Thursday. Said that she initally checked her blood pressure after feeling a little dizzy. She describes the dizziness as a spinning sensation, not pre-syncope or syncope. Has happened with head movements - yesterday had the sensation when she stood up after being bent over. Feels like she loses her balance temporarily. Has been under a lot of stress at work recently. Drinks quite a bit of caffeine but says there hasn't been any recent change in the amount. Little bit of nausea. No history of blood pressure problems previously. Has been having headaches over right yarsani. Has taken ibuprofen with no improvement. Currently smokes - took chantix in the past and quit for 6 weeks. Pt has BP readings with her from the past couple of days - they are 130/95, 127/90, 141/97. No chest pain or shortness of breath. 03-25-2012 Results Test Name Value Interpretation Reference Range Facil ity Vital Signs Date Time Vital Sign Value Performing Clinician Sandra murguia 03-24-2023 13:58-0400 Body height 167.64 cm Salvador Devi LPN [facility].; [facility]. 03-24-2023 13:58-0400 Body mass index (BMI) [Ratio] 22.92 kg/m2 Salvador Devi LPN [facility].; [facility] 03-24-2023 13:58-0400 Body surface area Derived from formula 1.73 m2 Salvador Devi LPN [facility].; [facility] 03-24-2023 13:58-0400 Body weight 64.41 kg Salvador Devi LPN [facility].; [employer] [facility] 03-24-2023 13:58-0400 Diastolic blood pressure 66 mm[Hg] Salvador Devi LPN [facility].; [employer] [facility] Encounters Encounter Date Encounter Type Care Provider Facility Start: 03-24-2023 End: 03-25-2023 Patient encounter procedure Emili William PA-C Work Phone: [facility].; [employer] Start: 03-24-2023 End: 03-25-2023 Periodic preventive med est patient 40-64yrs Emili William PA-C Work Phone: [employer] Start: 03-18-2023 End: 03-18-2023 Orders Emili William PA-C Work Phone: [employer] Start: 03-11-2023 End: 03-11-2023 Orders Emili William PA-C Work Phone: [employer] Start: 08-27-2022 End: 08-27-2022 ambulatory [facility] Start: 08-25-2022 End: 08-25-2022 ambulatory [facility] Start: 04-07-2022 End: 04-07-2022 Office outpatient visit 15 minutes Emili William PA-C Work Phone: [employer] Start: 03-21-2022 End: 03-21-2022 Patient encounter status Emili William PA-C Work Phone: [employer]; [employer] Start: 03-21-2022 End: 03-21-2022 Periodic preventive med est patient 40-64yrs Emili William PA-C Work Phone: [employer] Start: 07-15-2021 End: 07-15-2021 Telephone follow-up Emili William PA-C Work Phone: [employer] Start: 07-10-2021 End: 07-11-2021 Emergency department patient visit Eric Hernandez MD Work Phone: [facility] Procedures Date Procedure Procedure Detail Performing Clinician Start: 03-24-2023 End: 03-24-2023 Depression screening Jose Hanson PA-C Work Phone: Start: 03-24-2023 End: 03-24-2023 Scr dep neg, no plan reqd Jose springer PA-C Work Phone: Start: 03-18-2023 End: 03-18-2023 Lab findings surveillance Salvador Marito L PN Plan of Treatment Date Care Activity Detail Author Start: 03-18-2021 Provider Instructions for Treatment [facility] HM Issues, 50-64 female Indication: Annual physical exam (Renamed from Encounter for annual physical exam) Start: 18-Mar-2021 Instruction Type: Provider Instructions for Treatment [employer] Start: 02-25-2021 Screening mammography bi 2-view breast inc cad Mammogram Bilateral Screening ([id number]) Start: 25-Feb-2021 Intent [employer] [employer] Start: 01-30-2021 Influenza vaccination given INFLUENZA VACCINE (#1) [facility] Start: 12-18-2020 COVID-19 VACCINE (3 - Booster for Pfizer series) COVID-19 VACCINE (3 - Booster for Pfizer series) [facility] Start: 02-23-2020 Screening mammography bi 2-view breast inc cad Mammogram Bilateral Screening ([id number]) Start: 23-Feb-2020 Intent [employer] Start: 02-18-2020 Zoster vaccine hzv live for subcutaneous use ZOSTER (SHINGLES) VACCINE (1 of 2) [facility] Start: 04-22-2019 Screening mammography bi 2-view breast inc cad Mammogram Bilateral Screening ([id number]) Start: 22-Apr-2019 Intent [employer] Work Phone: Start: 2015 Screening for malignant neoplasm of colon [facility] Start: 2010 Screening mammography MAMMOGRAM [facility] Start: 02-18-1988 ANNUAL WELLNESS VISIT ANNUAL WELLNESS VISIT [facility] Start: 1982 Depression screening using PHQ-9 (Patient Health Questionnaire 9) score DEPRESSION SCREENING [facility] Start: 1981 Diphtheria + pertussis + tetanus vaccine (product) DTAP/TDAP/TD VACCINE (1 - Tdap) [facility] Immunizations Immunization Date Immunization Notes Care Provider Mima rfuf 04-24-2020 influenza virus vaccine, unspecified formulation Eric Hernandez MD Work Phone: [facility] tetanus toxoid, redu norma diphtheria toxoid, and acellular pertussis vaccine, adsorbed Emili William PA-C Work Phone: [employer] Payers Date Payer Category Payer Unknown [id number] 2016 Private Health Insurance [id number] 1970 Unknown [id number] 1970 Unknown [id number] Unknown [id number] Social History Date Type Detail Facility Start: 07-10-2021 Tobacco smoking stat [facility] Ex-smoker [facility] Start: 07-10-2021 Tobacco use and exposure Smokeless tobacco non-user [facility] Start: 07-10-2021 Alcohol intake Ex-drinker (finding) [facility] Start: 1970 Sex Assigned At Not on file [facility] Exposure to SARS-CoV -2 (event) Not sure [facility] Alcohol Use Alcohol Use [employer] [employer] Exercise History: Exercise Histo ry: ; Light. [employer]. Marital status: Marital status: ; . [employer]. Tobacco Use: Tobacco Use: ; C urrent every day smoker. [employer]. Female [employer]. Work Phone: Smokes tobacco daily [employer] [employer] Work Phone: [employer] Work Phone: Note 07-11-2021 D/C Mary José RN - 07/11/2021 3:16 PM ESTD/C Mary José RN - 07/11/2021 3:15 PM Santiago York, Beth, RN - 07/11/2021 10:16 AM EST Note [...] Patient has prescriptive coverage and fills at [facility] in [facility]. DCP today is home self care. [...] A&O x 4. documented in this encounter [facility] Discharge instructions 07-11-2021 Instructions Note Date [...] The doctor may recommend that you take lsdk-dxe-legntqb medicine, such as loperamide (Imodium). Read and [...] Where can you learn more? Go to [email or web address] Enter W335 in the search box to learn more about Diarrhea: Care Instructions. Current as of: November 29, 2020 Content Version: 13. [employer] Care instructions adapted under license by your healthcare professional. If you have questions about a medical condition or this instruction, always ask your healthcare professional. [employer] disclaims any warranty or liability for your use of this information. documented in this encounter [facility] course Narrative 07-11-2021 Skyler Philip, SESAR - 07/11/2021 8:43 AM EST Note Date & Type Note Facility 07-11-2021 Hospital course Narrative [facility] Discharge Summary Ramona Forde Account: [id number] Admitted: 07/10/2021 Discharge Date/Time: 07/11/21 8:43 AM _ Handoff to PCP PCP to address the following 1. Resumption of Lisnopril in ~ 5 days, recommend repeat BMP in ~ 1 week. 2. If diarrhea reoccurrence possible outpatient cdiff testing. Clinical Summary Ramona Forde is a 51 y.o. female with a history of hypertension who presented to [facility] 07/10/2021 with acute onset vomiting, diarrhea, abdominal [...] information including patient medical records, please contact [phone] or go to [email or web address] Patient instructions, including activity, were given [...] discharge > 30 minutesdocumented in this encounter [facility] History of Present illness Narrative 07-11-2021 Skyler Philip PA - 07/11/2021 7:24 AM EST Note Date & Type Note Facility 07-11-2021 History of Present illness Narrative [facility] / [facility] Inpatient Progress Note 07/11/2021 Ramona Forde [id number] Assessment/Plan: Ramona Forde is a 51 y.o. female with a history of hypertension who presented to [facility] 07/10/2021 with acute onset vomiting, diarrhea, abdominal [...] last 168 hours. documented in this encounter [facility] Emergency department Note 07-10-2021 Eric Hernandez MD [...] After IV fluids, antiemetics, and analgesics Ms. Forde reports feeling better. We discussed discharge home with oral antiemetics versus hospitalization for observation and further as-needed treatment and Ms. Forde would prefer to stay tonight. Admission to [...] pancreatitis is a 1; and results for Kamrar's Criteria is a 2, therefore, suggesting severe pancreatitis unlikely. Hypotension and tachycardia improved after IV fluids. Lactate level improved to 1.0. Additional Fentanyl and Zofran ordered for nausea and pain control. Patient will be admitted to [facility]'s service for further evaluation and treatment with [...] 17.0 (*) Absolute Neutrophil 13.6 (*) Absolute [place] 0.7 (*) All other components within normal [...] and Plan: Patient will be admitted to [facility]'s service for further evaluation and treatment with [...] dry and intact. documented in this encounter [facility] History and physical note 07-10-2021 Carlos Weldon MD - 07/10/2021 6:14 PM EST Note Date & Type Note Facility 07-10-2021 History and physical note [facility] History and Physical 07/10/21 Ramona Forde 1970 [id number] Assessment/Plan: Ramona Forde is a 51 y.o. female with a history of hypertension who presented to [facility] 07/10/2021 with acute onset vomiting, diarrhea, abdominal [...] nausea and vomiting History of Present Illness: Ramona Forde is a 51 y.o. female with a history of hypertension who presented to [facility] 07/10/2021 with acute onset vomiting, diarrhea, abdominal pain of 3 hours duration. States she was fine and without any symptoms until about 11 am today. Then she started experiencing some abdominal discomfort and started having diarrhea and multiple episodes of vomiting. States her stool was watery with no blood or mucous. Hope very weak and slightly dizzy. States her [...] Social Gatherings with Friends and Family: Attends [employer] Services: Active Member of Clubs or Organizations: [...] last 168 hours. documented in this encounter [facility] Evaluation note Note Date & Type Note Facility documented in this encounter [facility] Summary Purpose Family History arthritis-mother Status:Active diabetes-mother Status:Active Hypertension Status:Active Comments:Mother. arthritis-mother Status:Active diabetes-mother Status:Active Hypertension Status:Active Comments:Mother. arthritis-mother Status:Active diabetes-mother Status:Active Hypertension Status:Active Comments:Mother. 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 Advance Directives and Living Will Power of Director Of Government Sales DNR Documentation Latest Code Status on File Code Status Date Activated Date Inactivated Comments Full Code 07/11/2021 8:43 AM Full Code 07/10/2021 8:14 PM 07/11/2021 8:43 AM Reason for Referral Specialty Diagnoses / Procedures Referred By Zulay ellison Referred To Contact Skyler Philip PA [facility] [address] [place] [address] Referral ID Status Reason Start Date Expiration Date V isits Requested Visits Authorized [id number] Incomplete 07/11/2021 08/08/2022 1 1 Additional Source Comments INFORMATION SOURCE (unrecogn ized section and content) DATE CREATED AUTHOR AUTHOR'S ORGANIZ ATION 11/24/2017 [facility] DATE CREATED AUTHOR AUTHOR'S ORGANIZ ATION 02/02/2020 [facility] DATE CREATED AUTHOR AUTHOR'S ORGANIZ ATION 07/16/2021 [facility] DATE CREATED AUTHOR AUTHOR'S ORGANIZ ATION 08/27/2022 [facility] DATE CREATED AUTHOR AUTHOR'S ORGANIZ [...] Expiration Date Visits Re quested Visits Authorized [id number] 1 1 Scheduled Active and Recently Administ ered Medications (unrecognized section and content) Continuous Medication Order 07/09/2021 07/10/2021 07/11/2021 0.9% NaCl infusion Intravenous, at 125 mL/hr, CONTINUOUS, Starting on Thu07/10/21 at 2100, Until Debora 07/11/21 at [id number] (New Bag - Provider: Claudia Bowen, RN) 1008 (Stopped - Provider: Beth York RN) [...] subsequent to initial labs (refer to the [facility] Electrolyte Replacement Orders) Other, DAILY PRN, [...] BE BASED ON THE PRIMARY CLINICAL RECORDS. [employer] provides no warranty or guarantee of the accuracy or completeness of information in this document.
[2023-07-23 13:30] VITALS: BP 107/84; BP 97/73; PULSE 73; RESP 16; TEMP 36.1; O2SAT 100
[2023-07-23 13:35] VITALS: BP 124/94; BP 97/73; PULSE 76; RESP 16; O2SAT 100
[2023-07-23 13:40] VITALS: BP 115/83; BP 97/73; PULSE 68; RESP 16; TEMP 36.3; O2SAT 100
[2023-07-23 14:08] VITALS: BP 97/73
== END 2023-07-23 14:51 | disposition home or self-care (01) ==
LOC: SDC 11:35 → AC 11:35
PROVIDERS: PCP Physician Assistant; Referring Provider Urology; Visit Provider Urology
PROC: 0TJ98ZZ Inspection of Ureter, Via Natural or Artificial Opening Endoscopic (ICD-10-PCS; CPT 52352; principal; 2023-07-23 13:20)
DX: N13.1 Hydronephrosis with ureteral stricture, not elsewhere classified (principal); R10.9 Unspecified abdominal pain; I10 Essential (primary) hypertension; Z90.710 Acquired absence of both cervix and uterus; Z98.82 Breast implant status; Z98.1 Arthrodesis status; F17.200 Nicotine dependence, unspecified, uncomplicated; N32.81 Overactive bladder; R35.1 Nocturia
CPT/HCPCS: 52332; 00910; 76000; J7120; C2617; J2405

== ENCOUNTER 2023-08-06 11:42 | Day surgery (SDC) | payer OTHER, SELFPAY ==
[2023-08-06] VITALS (8 sets, daily range): BP systolic 98–108; BP diastolic 62–79; PULSE 79–93; RESP 16; TEMP 35.9–36.6; O2SAT 97–100; BMI 21.7
[2023-08-06] MEDS: Ciprofloxacin 400 MG/200 ML BAG 200 MG IV (12:12)
[2023-08-06] MEDS: 0.9% Normal Saline (1000mL) 1,000 ML 15 ML IV (12:14)
--- OUTSIDE RECORDS SUMMARY | 2023-08-06 12:33 | XMS RPT_ITS | CCD ---
Author Name Unknown Address [address] [place] [address] Organization [facility] Care Team Providers Care Psychologist Industrial Organizational Name Role Phone Israel Fritz Unavailable Unavailable [...] William PA-C Unavailable Emili William PA-C Unavailable (Atkins), [facility] Dermatology Unavailable Dr. Bean Morris MD Unavailable Jesse PROPERTY SITE MANAGER, Zo Unavailable Odalis Lee PA-C Unavailable Dhaval Pace MD Unavailable Day PROPERTY SITE MANAGER, Nataliya Unavailable Unavailable Allyson Lozano MA Unavailable Unavailable Christopher MARTINEZN, Jessica Unavailable Unavailable Anastasia Grover PA-C Unavailable Jose Hanson PA-C Unavailable KristinLuana C Unavailable Unavailable Estrella DIAMOND, Anastasia Noble Unavailable Unavaila ble Marito PROPERTY SITE MANAGER, Salvador Unavailable Unavailable Mutersbaugh PROPERTY SITE MANAGER, Anisa K Unavailable Unavai labcarson Chu PROPERTY SITE MANAGER, Supriya Connelly Unavailable Unavailab le Arsh PROPERTY SITE MANAGER, Keesha Patiño Unavailable Unavailab carson Winter MA, Delfina Unavailable Unavailable Kelsy DOWNEY, Ramona K Unavailable James VELA, Maximo Noble Unavailable [phone] Susi PROPERTY SITE MANAGER, Xenia Unavailable Unavailabl e Unavailable Unavailable Allergies Allergy Classification Reported Allergen(s) Allergy Type Date of Onset Reaction(s) Facility (1 source) Penicillins Propensity to adverse reactions to drug 2 Other (See Comments) [facility] (1 source) Penicillins Drug allergy (disorder) [facility] (4 sources) Penicillin V Drug Allergy [facility], [facility].; [facility], [facility]. Medications Current Medications Medication Drug Class(es) Dates Sig (Normalized) Sig (Original) 12 hr buPROPion hydrochloride 150 mg extended release oral tablet (15 sources) Aminoketone Start: 06-22-2023 buPROPion HCL SR 150 mg tablet,12 hr sustained-release ; 1 (one) tablet twice a day for 0 days Quantity: 60 {Tablet} Refills: 2 Ordered: 22-Jun-2023 ELIZABETH William Start: 22-Jun-2023 Completed/Discontinued Medications Medication Drug Class(es) Dates Sig (Normalized) Sig (Original) acetaminophen 325 mg / HYDROcodone bitartrate 5 mg oral tablet (4 sources) Opioid Agonist Start: 01-30-2017 End: 05-26-2018 take 1 tablet by mouth every six hours as needed for pain Lenox 5-325 MG Oral Tablet ; 1 (one) Tablet every 6 hours as needed for pain for 0 days Quantity: 28 {Tablet} Refills: 0 Ordered: 26-May-2018 TESS Molina Start: 30-Jan-2017 End: 26-May-2018 Status: Inactive Comments: Medication taken as needed. Problems Active Problems Problem Classification Problem Date Documented Da te Episodic/Chronic Abdominal pain (9 sources) Abdominal pain; Translations: [Unspecified abdominal pain] Episodic Acute bronchitis (4 sources) Acute bronchitis 10-31-2013 Episodic Chronic obstructive pulmonary disease and bronchiectasis (8 sources) Bronchitis; Translations: [Bronchitis, not specified as acute or chronic] 11-10-2013 Episodic Conditions associated with dizziness or vertigo (8 sources) Vertigo; Translations: [Dizziness and giddiness] 12-25-2015 Episodic Diseases of white blood cells (1 source) Leukocytosis; Translations: [Elevated white blood cell count, unspecified] Chronic Essential hypertension (20 sources) Hypertensive disorder; Translations: [Essential (primary) hypertension] 03-24-2023 Chronic Headache; including migraine (4 sources) Headache; Translations: [Headache] 03-25-2012 Episodic Immunizations and screening for infectious disease (1 source) Contact with or exposure to other viral diseases; Translations: [Lab test negative for COVID-19 virus] Episodic Nausea and vomiting (1 source) Nausea, vomiting and diarrhea; Translations: [Nausea with vomiting, unspecified] Episodic Other circulatory disease (8 sources) Elevated blood pressure; Translations: [Elevated blood-pressure reading, without diagnosis of hypertension] 03-18-2021 Episodic Other circulatory disease (4 sources) Elevated blood pressure reading without diagnosis [...] serum enzymes] Episodic Other nervous system disorders (4 sources) Compression injury of nerve; 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, 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 Other screening for suspected conditions (not mental disorders or infectious disease) (20 sources) Lactic acidemia; Translations: [Other specified abnormal findings of blood chemistry] Onset: 08-25-2022 Episodic Other skin disorders (8 sources) Ruptured epidermal cyst; Translations: [Epidermal cyst] 03-24-2023 Episodic Other skin disorders (8 sources) Skin lesion; Translations: [Disorder of the skin and subcutaneous tissue, unspecified] 03-24-2023 Episodic Other upper respiratory infections (4 sources) Sinusitis; Translations: [Chronic sinusitis, unspecified] 06-22-2019 Chronic Other upper respiratory infections (16 sources) Acute maxillary sinusitis; Translations: [Acute maxillary sinusitis, unspecified] 01-27-2020 Episodic Residual codes; unclassified (16 sources) Tobacco user; Translations: [Tobacco use] 03-24-2023 Episodic Residual codes; unclassified (8 sources) Viral syndrome; Translations: [Other general symptoms and signs] 03-24-2023 Episodic Residual codes; unclassified (8 sources) Tobacco use and exposure - finding; Translations: [Tobacco use] 03-25-2023 Episodic Screening and history of mental health and substance abuse codes (8 sources) Patient encounter status; Translations: [Encounter for screening for depression] 03-24-2023 Episodic Septicemia (except in labor) (2 sources) Sepsis without acute organ dysfunction; Translations: [Sepsis, unspecified organism] Onset: 07-10-2021 Episodic Spondylosis; intervertebral disc disorders; other back problems (8 sources) Annular tear of cervical disc; Translations: [Other cervical disc degeneration, unspecified cervical region] 01-29-2017 Chronic Spondylosis; intervertebral disc disorders; other back problems (20 sources) Backache; Translations: [Dorsalgia, unspecified] 03-18-2021 Episodic Unclassified (4 sources) deliveries 03-24-2023 Past or Other Problems Problem Classification Problem Date Documented Da te Episodic/Chronic Headache; including migraine (4 sources) Headache; including migraine 04-07-2022 Unclassified (4 sources) Well adult female - The patient feels well with minor complaints (Pt wanting Wellbutrin renewed, used it to stop smoking a few years ago.). The patient is not using any method of contraception at this time. The patient has a balanced diet. The patient does not exercise. The patient sleeps 5 hours per night. 03-25-2023 Unclassified (4 sources) Well adult female - The patient feels well with no complaints, has good energy level and is sleeping well. The patient has a balanced diet. The patient does not exercise. The patient sleeps 6 hours per night. 03-21-2022 Unclassified (4 sources) Skin ulcer/open sore - Symptoms include [...] putting antibiotic ointment on it. 07-01-2021 Unclassified (4 sources) Well adult female - The patient feels well with no complaints, has good energy level and is sleeping poorly. The patient has a balanced diet and takes supplemental vitamins. The patient does not exercise. The patient sleeps 6 hours per night. 03-18-2021 Unclassified (4 sources) Back pain - The onset of [...] little relief of her symptoms 08-03-2020 Unclassified (4 sources) Hypertension - The JNC classification is [...] 160/102. The BP machine is new from [employer].). Note for Hypertension : Her headache is [...] for the past 2-3 years. 04-24-2020 Unclassified (4 sources) Well adult female - The patient [...] been there x 2 months. 02-23-2020 Unclassified (4 sources) Abdominal pain - The onset of [...] today.No fever.Vomiting/diarrhea provides temporary relief. 01-27-2020 Unclassified (4 sources) Cold Symptoms - Symptoms include nasal [...] little dizzy.Recently flew on airplane. 06-22-2019 Unclassified (4 sources) Well adult female - The patient [...] sleeps 6 hours per night. 04-22-2019 Unclassified (4 sources) Cold Symptoms - Symptoms include nasal congestion, ear fullness, sore throat, dry cough, general malaise and headache, but do not include fever. The onset was gradual 3 week(s) ago. The patient describes this as moderate in severity and worsening. Current treatment includes non-prescription cold medication. Risk factors include smoking. 05-26-2018 Unclassified (4 sources) Neck pain - The onset of [...] have an injury about 3 months ago. [place] off the boat and landed on her neck. 01-16-2017 Unclassified (4 sources) Dizziness - The onset of the [...] Dizziness : Describes vertigo sx. 12-25-2015 Unclassified (4 sources) Well adult female - The patient [...] Hameed for routine exam yesterday. 02-14-2015 Unclassified (4 sources) Cold Symptoms - Symptoms include sneezing, [...] tonsillectomy or recurrent ear infections. 10-31-2013 Unclassified (4 sources) Cold Symptoms - Symptoms include nasal [...] asthma or recurrent ear infections. 04-04-2013 Unclassified (4 sources) high bp - Pt is here [...] Body height 167.64 cm Salvador Devi LPN [facility], [facility].; [facility], [facility]. 03-24-2023 13:58-0400 Body mass index (BMI) [Ratio] 22.92 kg/m2 Salvador Devi LPN [facility], [facility].; [facility] 03-24-2023 13:58-0400 Body surface area Derived from formula 1.73 m2 Salvador Devi LPN [facility], [facility].; [facility] [employer] [facility] 03-24-2023 13:58-0400 Body weight 64.41 kg Salvador Devi LPN [facility], [facility].; [employer] [facility] 03-24-2023 13:58-0400 Diastolic blood pressure 66 mm[Hg] Salvador Devi LPN [facility], [facility].; [employer] [facility] Encounters Encounter Date Encounter Type Care Provider Facility Start: 03-24-2023 End: 03-25-2023 Patient encounter procedure Emili William PA-C Work Phone: [facility], [facility].; [employer] Start: 03-24-2023 End: 03-25-2023 Periodic preventive med est patient 40-64yrs Emili Willima PA-C Work Phone: [employer] Start: 03-18-2023 End: 03-18-2023 Orders Emili William PA-C Work Phone: [employer] Start: 03-11-2023 End: 03-11-2023 Orders Emili William PA-C Work Phone: [employer] Start: 08-27-2022 End: 08-27-2022 ambulatory [facility] Start: 08-25-2022 End: 08-25-2022 ambulatory [facility] Start: 04-07-2022 End: 04-07-2022 Office outpatient visit 15 minutes Emili William PA-C Work Phone: [employer] Start: 03-21-2022 End: 03-21-2022 Patient encounter status Emili William PA-C Work Phone: [employer]; [employer] Start: 03-21-2022 End: 03-21-2022 Periodic preventive med est patient 40-64yrs Emili William PA-C Work Phone: [employer] Start: 07-15-2021 End: 07-15-2021 Telephone follow-up Emili William PA-C Work Phone: [employer] Start: 07-10-2021 End: 07-11-2021 Emergency department patient visit Eric Hernandez MD Work Phone: [facility] ([facility]) Procedures Date Procedure Procedure Detail Performing Clinician Start: 03-24-2023 End: 03-24-2023 Depression screening oJse Hanson PA-C Work Phone: Start: 03-24-2023 End: 03-24-2023 Scr dep neg, no plan reqd Jose springer PA-C Work Phone: Start: 03-18-2023 End: 03-18-2023 Lab findings surveillance Salvador Marito L PN Plan of Treatment Date Care Activity Detail Author Start: 03-18-2021 Provider Instructions for Treatment [facility] HM Issues, 50-64 female Indication: Annual physical exam (Renamed from Encounter for annual physical exam) Start: 18-Mar-2021 Instruction Type: Provider Instructions for Treatment [employer]. Start: 02-25-2021 Screening mammography bi 2-view breast inc cad Mammogram Bilateral Screening (52909) Start: 25-Feb-2021 Intent [employer]. Start: 01-30-2021 Influenza vaccination given INFLUENZA VACCINE (#1) [facility] Start: 12-18-2020 COVID-19 VACCINE (3 - Booster for Pfizer series) COVID-19 VACCINE (3 - Booster for Pfizer series) [facility] Start: 02-23-2020 Screening mammography bi 2-view breast inc cad Mammogram Bilateral Screening (97616) Start: 23-Feb-2020 Intent [employer]. Start: 02-18-2020 Zoster vaccine hzv live for subcutaneous use ZOSTER (SHINGLES) VACCINE (1 of 2) [facility] Start: 04-22-2019 Screening mammography bi 2-view breast inc cad Mammogram Bilateral Screening (56474) Start: 22-Apr-2019 Intent [employer]. Work Phone: Start: 2015 Screening for malignant neoplasm of colon [facility] Start: 2010 Screening mammography MAMMOGRAM [facility] Start: 02-18-1988 ANNUAL WELLNESS VISIT ANNUAL WELLNESS VISIT [facility] Start: 1982 Depression screening using PHQ-9 (Patient Health Questionnaire 9) score DEPRESSION SCREENING [facility] Start: 1981 Diphtheria + pertussis + tetanus vaccine (product) DTAP/TDAP/TD VACCINE (1 - Tdap) [facility] Immunizations Immunization Date Immunization Notes Care Provider Mima ruff 04-24-2020 influenza virus vaccine, unspecified formulation Eric Hernandez MD Work Phone: [facility] tetanus toxoid, redu norma diphtheria toxoid, and acellular pertussis vaccine, adsorbed Emili William PA-C Work Phone: [employer] Payers Date Payer Category Payer Unknown [id number] 2016 Private Health Insurance [id number] 1970 Unknown [id number] 1970 Unknown [id number] Unknown [id number] Social History Date Type Detail Facility Start: 07-10-2021 Tobacco smoking stat [facility] Ex-smoker [facility] Start: 07-10-2021 Tobacco use and exposure Smokeless tobacco non-user [facility] Start: 07-10-2021 Alcohol intake Ex-drinker (finding) [facility] Start: 1970 Sex Assigned At Not on file G [facility] Exposure to SARS-CoV -2 (event) Not sure [facility] Alcohol Use Alcohol Use [employer]. Exercise History: Exercise Histo ry: ; Light. [employer]. Marital status: Marital status: ; . [employer]. Tobacco Use: Tobacco Use: ; C urrent every day smoker. [employer]. Female [employer]. Work Phone: Smokes tobacco daily [employer]. Work Phone: [employer] Work Phone: Note 07-11-2021 D/C Mary José [...] Patient has prescriptive coverage and fills at [facility] in [facility]. DCP today is home self care. CM [...] A&O x 4. documented in this encounter [facility] Hospital Discharge instructions 07-11-2021 Instructions Note [...] The doctor may recommend that you take iwrz-bgb-xmojakv medicine, such as loperamide (Imodium). Read and [...] Where can you learn more? Go to https://www.AWAK.net/sesar Hendrix Enter W335 in the search box to learn more about Diarrhea: Care Instructions. Current as of: November 29, 2020 Content Version: 13. [employer]. Care instructions adapted under license by your healthcare professional. If you have questions about a medical condition or this instruction, always ask your healthcare professional. [employer] disclaims any warranty or liability for your use of this information. documented in this encounter [facility] course Narrative 07-11-2021 Skyler Philip, SESAR - 07/11/2021 8:43 AM EST Note Date & Type Note Facility 07-11-2021 Hospital course Narrative [facility] Medicine / [facility] Discharge Summary Ramona Forde Account: [id number] Admitted: 07/10/2021 Discharge Date/Time: 07/11/21 8:43 AM _ Handoff to PCP PCP to address the following 1. Resumption of Lisnopril in ~ 5 days, recommend repeat BMP in ~ 1 week. 2. If diarrhea reoccurrence possible outpatient cdiff testing. Clinical Summary Ramona Forde is a 51 y.o. female with a history of hypertension who presented to [facility] 07/10/2021 with acute onset vomiting, diarrhea, abdominal [...] information including patient medical records, please contact [phone] or go to [email or web address] Patient instructions, including activity, were [...] discharge > 30 minutesdocumented in this encounter [facility] History of Present illness Narrative 07-11-2021 Skyler Philip PA - 07/11/2021 7:24 AM EST Note Date & Type Note Facility 07-11-2021 History of Present illness Narrative [facility] Medicine / [facility] Inpatient Progress Note 07/11/2021 Ramona Forde 1970 [id number] Assessment/Plan: Ramona Forde is a 51 y.o. female with a history of hypertension who presented to [facility] 07/10/2021 with acute onset vomiting, diarrhea, abdominal [...] last 168 hours. documented in this encounter [facility] Emergency department Note 07-10-2021 Eric Hernandez [...] pt at this time, report from Ella DAIMOND. Pt given water to drink Aquiles Campuzano [...] pancreatitis is a 1; and results for Biddle's Criteria is a 2, therefore, suggesting severe pancreatitis unlikely. Hypotension and tachycardia improved after IV fluids. Lactate level improved to 1.0. Additional Fentanyl and Zofran ordered for nausea and pain control. Patient will be admitted to [facility]'s service for further evaluation and treatment [...] 17.0 (*) Absolute Neutrophil 13.6 (*) Absolute Patillas 0.7 (*) All other components within normal [...] and Plan: Patient will be admitted to [facility]'s service for further evaluation and treatment [...] dry and intact. documented in this encounter [facility] History and physical note 07-10-2021 Carlos Weldon MD - 07/10/2021 6:14 PM EST Note Date & Type Note Facility 07-10-2021 History and physical note [facility] / [facility] History and Physical 07/10/21 Ramona Forde 1970 [id number] Assessment/Plan: Ramona Forde is a 51 y.o. female with a history of hypertension who presented to [facility] 07/10/2021 with acute onset vomiting, diarrhea, abdominal [...] a history of hypertension who presented to [facility] 07/10/2021 with acute onset vomiting, diarrhea, abdominal pain of 3 hours duration. States she was fine and without any symptoms until about 11 am today. Then she started experiencing some abdominal discomfort and started having diarrhea and multiple episodes of vomiting. States her stool was watery with no blood or mucous. [place] very weak and slightly dizzy. States her [...] Social Gatherings with Friends and Family: Attends [employer] Services: Active Member of Clubs or Organizations: [...] last 168 hours. documented in this encounter [facility] Evaluation note Note Date & Type Note Facility documented in this encounter [facility] Summary Purpose Family History arthritis-mother Status:Active diabetes-mother Status:Active Hypertension Status:Active Comments:Mother. arthritis-mother Status:Active diabetes-mother Status:Active Hypertension Status:Active Comments:Mother. arthritis-mother Status:Active diabetes-mother Status:Active Hypertension Status:Active Comments:Mother. arthritis-mother Status:Active diabetes-mother Status:Active Hypertension Status:Active Comments:Mother. Advance Directives Documents on File Type Date Recorded Patient Scientific Advisor Expl anation Advance Directives and Living Will Power of Rn Unit Manager DNR Documentation Latest Code Status on File Code Status Date Activated Date Inactivated Comments Full Code 07/11/2021 8:43 AM Full Code 07/10/2021 8:14 PM 07/11/2021 8:43 AM Reason for Referral Specialty Diagnoses / Procedures Referred By Zulay t Referred To Contact Skyler Philip PA [address] [place] [address] Referral ID Status Reason Start Date Expiration Date V isits Requested Visits Authorized [id number] Incomplete 07/11/2021 08/08/2022 1 1 Additional Source Comments INFORMATION SOURCE (unrecogn ized section and content) DATE CREATED AUTHOR AUTHOR'S ORGANIZ ATION 11/24/2017 [facility] DATE CREATED AUTHOR AUTHOR'S ORGANIZ ATION 02/02/[facility] DATE CREATED AUTHOR AUTHOR'S ORGANIZ ATION 07/16/2021 [facility] DATE CREATED AUTHOR AUTHOR'S ORGANIZ ATION 08/27/2022 [facility] DATE CREATED AUTHOR AUTHOR'S ORGANIZ ATION 03/20/2023 [...] Expiration Date Visits Re quested Visits Authorized [id number] 1 1 Scheduled Active and Recently Administ ered Medications (unrecognized section and content) Continuous Medication Order 07/09/2021 07/10/2021 07/11/2021 0.9% NaCl infusion Intravenous, at 125 mL/hr, CONTINUOUS, Starting on Thu07/10/21 at 2100, Until Debora 07/11/21 at 1629 2143 (New Bag - Provider: Claudia Bowen RN) 1008 (Stopped - Provider: Beth York [...] subsequent to initial labs (refer to the [facility] Electrolyte Replacement Orders) Other, DAILY PRN, [...] BE BASED ON THE PRIMARY CLINICAL RECORDS. [facility]. provides no warranty or guarantee of the accuracy or completeness of information in this document.
[2023-08-06] MEDS: Lubricating Jelly 60 GM Tube 30 GM (12:55)
--- NOTE | 2023-08-06 13:10 | CALC_PTH ---
PATHOLOGY RESULTS PATIENT: KIARA GABRIEL LOC: [facility] [place] U#:[id number] AGE/SX: 53/F ROOM: RE08/06/[address]: Dr. Belgica Eli MD : 1970 BED: DIS: 08/06/2023 SPEC #: [id number] RECD: 08/06/23 14:24 STATUS: EMILY GONCALVES #: [id number] RENAY: 08/06/23 13:[address]: Belgica Eli DEPT: SURGICAL PATHOLOGY RECD BY: Tri Gee ENTERED: 08/07/23 08:09 SP TYPE: Calculi OTHR DR: MARCIE Madsen Tissues: CALCULI Procedures: Surgery Specimen Level I HEADER OPERATION: Cysto, ureteroscopy, laser, stent change PRE-OP DIAGNOSIS: Hydroureteronephrosis, ureteral stone TISSUE SUBMITTED: Ureteral stone GROSS DIAGNOSIS Fragments of stone, clinically ureteral stone (gross only). SJ:chica 08/10/2023 COMMENT The calculus is submitted in its entirety for chemical stone analysis. The results from this study will be reported separately. GROSS DESCRIPTION Received without fixative labeled with the patient's name and designated ureteral calculi. The specimen consists of three fragments of lindsay-red stone measuring in aggregate 0.5 x 0.3 x 0.1 cm. The entire specimen is submitted for stone analysis. / SJ:chica 08/07/2023 CPT: 53120
--- NOTE | 2023-08-06 14:42 | DCINST_ITS ---
Discharge Instructions Diet Discharge Diet: No restrictions Activity Discharge Activity: Return to Normal Activity Dressing / Incision Call your doctor if you observe: Fever of 101 or Higher, Inability to urinate and Inability to have a bowel movement Follow Up Care Please Follow Up With: Belgica Eli MD When: The office will call her to make follow up arrangements. Test Results: Test results from this visit will be discussed in further detail at your follow- up appointment, if applicable. Discharge Plan Admission Attending Provider: Belgica Eli Primary Care Provider: Debbie William Discharge Orders/Prescriptions Prescriptions: New oxycodone-acetaminophen [Percocet] 5-325 mg tablet 1 tab PO Q8H PRN (Reason: pain) 3 Days Qty: 10 0RF ondansetron 4 mg tablet,disintegrating 4 mg PO Q8H PRN (Reason: nausea and vomiting) Qty: 10 0RF phenazopyridine [Pyridium] 200 mg tablet 200 mg PO TID PRN PRN (Reason: Bladder Spasms) 7 Days Qty: 30 3RF sulfamethoxazole-trimethoprim [sulfamethoxazole-trimethoprim] 800-160 mg tablet 1 tab PO BID 3 Days Qty: 6 0RF Continued lisinopril 10 mg Tablet 10 mg PO DAILY Probacap 10 billion cell capsule 10,000 mmu cells PO BID Referrals / Follow Up: Debbie William PA [Primary Care Provider] - Disposition Disposition (needs filled in before D/C Order can be placed): Home, Self Care
--- NOTE | 2023-08-06 15:48 | OP.PCM_ITS ---
Report of Operation Date of Procedure: 08/06/23 Pre-Operative Diagnosis: Left ureteral calculus, left hydronephrosis Post-Operative Diagnosis: Same, left ureteral stricture Surgery/Procedure Performed:: Cystoscopy, left ureteroscopy, holmium laser lithotripsy, stone basket extraction, left ureteral stent change Surgeon: Belgica Eli Type of Anesthesia: General Specimen's removed: Ureteral calculus, fragments Description of Procedure: The patient is a 53-year-old female who Bill presents to the operating room for repeat ureteroscopy with laser lithotripsy and stone removal, left ureteral stent change. Informed consent was obtained. The patient was taken to the operating room and placed on the operating room table. Anesthesia monitored the head, neck, airway, IV access and vital signs throughout the case. Once anesthesia was appropriately administered, the patient was placed into dorsolithotomy position was prepped and draped in usual sterile fashion. The left indwelling ureteral stent was observed. 2 separate 0.035 Glidewire's were passed alongside the indwelling stent which was then removed with a basket. The flexible ureteroscope was inserted over one of the wires and advanced with some difficulty through an area of stricture into the area of hydroureter. The ureteroscope was advanced all the way into the renal pelvis where the calyces we re visualized revealing no evidence of any further stone, erythema, mass or abnormal mucosa. A stone was identified in the wall of the ureter just proximal to the strictured area. A 270 ?m laser fiber was used to break the stone into pieces which were then basket retrieved. There continued to be difficulty navigating the strictured portion of the ureter just distal to where the stone was identified. After all of the stone fragments were removed, the cystoscope was utilized with an 8 Portuguese cone-tip catheter and an attempt at a retrograde pyelogram was performed. No contrast was able to be injected alongside the stent into the area of stricture. The decision was made to leave a wider [address] The stent advanced over the safety wire into the renal pelvis with good positioning there and in the urinary bladder. Her bladder was then emptied and the cystoscope was removed. She was awakened and taken to the recovery room in good condition. There were no complications during the procedure. Grafts/Implants Used: 7 Portuguese by 26 cm JJ stent Complications None Admit VTE Documentation VTE Present on Admission: Yes VTE Mechan Device Prophylaxis: SCD's VTE Pharm Prophylaxis ordered?: No Reason prophylaxis not ordered:: Treatment Not Indicated
== END 2023-08-06 15:52 | disposition home or self-care (01) ==
LOC: SDC 11:44 → AC 11:45
PROVIDERS: PCP Physician Assistant; Referring Provider Urology; Visit Provider Urology
PROC: 0TJ98ZZ Inspection of Ureter, Via Natural or Artificial Opening Endoscopic (ICD-10-PCS; CPT 52352; principal; 2023-08-06 13:00)
DX: N13.2 Hydronephrosis with renal and ureteral calculous obstruction (principal); N13.5 Crossing vessel and stricture of ureter without hydronephrosis; N13.4 Hydroureter; I10 Essential (primary) hypertension; Z92.241 Personal history of systemic steroid therapy; Z97.2 Presence of dental prosthetic device (complete) (partial); Z90.710 Acquired absence of both cervix and uterus; Z98.82 Breast implant status; Z98.1 Arthrodesis status; F17.290 Nicotine dependence, other tobacco product, uncomplicated; R35.1 Nocturia; N32.81 Overactive bladder
CPT/HCPCS: 52356; 00918; 76000; 82360; 88300; J7030; C1874; J0744; J2405

== ENCOUNTER 2023-09-19 07:17 | Emergency (ER) | payer OTHER, SELFPAY ==
[2023-09-19 07:18] VITALS: BP 115/86; PULSE 91; RESP 18; TEMP 36.6; O2SAT 99; BMI 21.4
[2023-09-19 07:41] VITALS: BP 115/86; PULSE 91; RESP 16; TEMP 36.6; O2SAT 99
--- NOTE | 2023-09-19 07:42 | ED.VIS.GI ---
HPI HPI - GI History of Present Illness Chief Complaint: Diarrhea Informant: patient Abdominal Pain/Flank Pain Onset: Days Context: Gradual Onset Timing: Intermittent Quality: Cramping Location: Diffuse Current Severity: Mild Maximum Severity: Mild Worsened by: Nothing Relieved by: Nothing Nausea/Vomiting/Emesis GI Symptom: Negative for Nausea or Vomiting Diarrhea/Melena/Hematochezia GI Symptom: Positive for Diarrhea; Negative for Melena or Hematochezia Onset: Days Stool Quality: Positive for Watery Severity: Moderate Associated Symptoms Associated Symptoms: Negative for Dysuria, Hematuria or Urgency Narrative Narrative: 53-year-old female history of hypertension diagnosed with C. difficile in June, has had kidney stone with ureteral stent and prior hysterectomy. Had a CAT scan around July with concern for terminal ileitis but has not had any GI follow-up colonoscopy since that time. Today she is presenting due to 3 days of diarrhea that she has had 10 loose to watery bowel movements in the last 24 hours. No gross blood. She has been having some crampy abdominal discomfort. No vomiting. No fever. No dysuria. Prior similar symptoms: Yes Recent Illness/Hospitalization: No PFSH PFSH Medical History Alcohol use Bladder disease History of steroid therapy HTN (hypertension) Hydronephrosis, left Injury of head and neck Leg cramps Scoliosis Smoker Wears partial dentures Home Medications lisinopril 10 mg tablet 10 mg PO DAILY 08/04/21 [History Last Taken 07/23/23] Lactobacillus acidophilus 10 billion cell capsule (Probacap) 10,000 mmu cells PO BID 07/23/23 [History Last Taken 07/23/23] Allergy/AdvReac Type Severity Reaction Status Date / Time Penicillins Allergy Unknown Verified 09/19/23 07:17 Surgical History History of hysterectomy Hx of breast augmentation Hx of spinal fusion Social History Smoking Status: Current every day smoker tobacco type: e-cigarettes ROS ROS ED ROS Narrative Watery to loose stools. No vomiting. No fever. Crampy abdominal discomfort. Review of Systems ROS Unobtainable: Denies due to encephalopathy Constitutional Constitutional ED: Denies chills or fever(s) ENT ENT ED: Denies ear pain Cardiovascular Cardiovascular: Denies chest pain Respiratory/Chest Respiratory/Chest: Denies cough or dyspnea Gastrointestinal Gastrointestinal: Reports abdominal pain and diarrhea; Denies constipation, melena, nausea or vomiting Genitourinary Genitourinary ED: Denies dysuria or hematuria Musculoskeletal Musculoskeletal: Denies arthralgias or back pain Integumentary Denies abscess or Abrasions Neurologic Neurologic: Denies headache(s) Psychiatric Psychiatric: Denies anxiety Endocrine Endocrinology: Denies polydipsia Hematologic/Lymphatic Hematologic/Lymphatic: Denies easy bleeding Allergic/Immunologic Allergic/Immunologic ED: Denies mouth swelling, tongue swelling or urticaria EXAM Physical Exam Narrative Exam Narrative: 53-year-old female vital signs stable afebrile. She does not look septic toxic. She does not look significantly dehydrated. H EENT exam unremarkable. Moist mucous membranes. Neck nontender no lymphadenopathy. Lungs clear to auscultation bilaterally. Heart regular rhythm rate about 90 no murmur. Abdomen soft nondistended normal bowel sounds no peritoneal signs. Really no significant tenderness. No hernia or mass. Moving all 4 extremities. Nontender no edema. Neurologically she is awake and alert with no focal motor deficits. Const Vital Signs: 09/19/23 07:18 09/19/23 07:41 Temperature 97.9 F 97.9 F Temperature Source Temporal Temporal Pulse Rate 91 91 Respiratory Rate 18 16 Blood Pressure 115/86 H 115/86 H Blood Pressure Mean 95 95 Pulse Ox 99 99 Oxygen Delivery Method Room Air Room Air Positive well nourished and well developed; Negative for obese, cachectic, contractures or unkempt General Appearance ED: well developed and NAD; Negative for unkempt, cachectic, contractures or pallor Nutritional Appearance: Negative for cachectic or obese HEENT Reports moist mucous membranes normocephalic and atraumatic; Negative for trauma or tenderness Eyes PERRL and EOMs intact bilaterally General Eye ED: Negative for pale conjunctiva or scleral icterus Neck no lymphadenopathy, supple and no JVD General: Negative for tenderness Lymph Lymphatic: Negative for other Resp normal respiratory effort and clear to auscultation bilaterally Effort and Inspection: Negative for respiratory distress Auscultation: Negative for rales, rhonchi, wheezes or diminished lung sounds Cardio regular rate, regular rhythm, S1 normal heart sound, S2 normal heart sound and no murmurs Rate: Negative for bradycardia or tachycardic Rhythm: Negative for abnormal rhythm GI non-tender, non-distended and no masses Inspection: Negative for abdominal distention Auscultation: normoactive bowel sounds Palpation: soft; Negative for tender, guarding, rigid, pulsatile mass or rebound tenderness present Back/Spine no CVA tenderness General Back: Negative for CVA tenderness Cervical Spine: Negative for cervical spine tenderness Thoracic Spine / Upper Back: Negative for thoracic spinal tenderness Lumbar Spine / Lower Back: Negative for lumbar spinal tenderness Coccyx: Negative for other Extremity full ROM General Extremety ED: Negative for edema, tenderness or other findings General Extremity: Negative for edema or other findings Neuro CN's II-XII intact bilaterally and moves all extremities Sensorium / Orientation: alert, oriented to person, oriented to place and oriented to time; Negative for orientation impaired, confused, lethargic or stuporous Sensory Exam: No sensory level loss detected Motor Exam: strength 5/5 throughout, general weakness and strength abnormal Psych mental status grossly normal and thought process normal Appearance: Negative for unkempt Attitude: No agitated Mood & Affect: Negative for depressed, anxious or tearful Skin no wounds General Skin Exam: Negative for jaundice or pallor Lesions: no lesions Rashes: no rashes Trauma: Negative for abrasion Nails: Negative for discolored MDM MDM MDM Narrative Medical decision making narrative: 53-year-old female with crampy abdominal pain and diarrhea. She has had recent workups labs were basically unremarkable she did have C. difficile in June that will be retested. Also concern would be inflammatory bowel disease due to her CAT scan several months ago showing terminal ileitis. She needs follow-up most likely colonoscopy and may need biopsies. Repeat exam patient doing well at 9:10 AM. We discussed all of her test results. She is C. difficile positive. She will be started back on vancomycin 125 4 times a day for 2 weeks. Outpatient follow-up with either her primary care provider or infectious disease. Also outpatient follow-up with general surgery on-call for possible colonoscopy to determine if she may have inflammatory bowel disease or if this is all caused by the C. difficile. She had a CAT scan that was concerning several months ago for terminal ileitis. History & Record Review Discussion w/independent historian: Patient and Family Additional record(s) reviewed:: Prior inpatient record, Prior outpatient record, Prior ED visit and Prior labs Lab Data Attestation: I reviewed the patient's lab results. Lab results narrative: CBC showed a normal white count 8.7. H&H 11.6 and 34.8 which is a new anemia. Previously her hemoglobin was around 13-15. Platelets 321.CMP unremarkable. Glucose 121. Stool for C. difficile was positive. Labs: Laboratory Results - last 24 hr 09/19/23 07:44 WBC 8.7 RBC 3.91 L Hgb 11.6 L Hct 34.8 L MCV 89.0 MCH 29.7 MCHC 33.3 RDW Std Deviation 40.6 RDW Coeff of Janine 12.5 Plt Count 321 MPV 8.4 Immature Gran % (Auto) 0.600 Neut % (Auto) 84.2 H Lymph % (Auto) 8.7 L [place] % (Auto) 6.1 Eos % (Auto) 0.2 Baso % (Auto) 0.2 Absolute Neuts (auto) 7.3 Absolute Lymphs (auto) 0.76 L Nucleated RBC % 0 Sodium 136 Potassium 3.9 Chloride 105 Carbon Dioxide 24.0 Anion Gap 7 BUN 10 Creatinine 0.67 Estim Creat Clear Calc 87.38 Est GFR (MDRD) Af Amer 119 Est GFR (MDRD) Non-Af 98 BUN/Creatinine Ratio 15.0 Glucose 121 H Calcium 9.1 Total Bilirubin 0.40 AST 12 L ALT 16 Alkaline Phosphatase 45 Total Protein 7.0 Albumin 3.5 Globulin 3.5 Albumin/Globulin Ratio 1.0 Discharge Plan Triage Chief Complaint: Diarrhea ED Provider: Chapo Ivy Dx/Rx/DC Orders Prescriptions: No Action lisinopril 10 mg Tablet 10 mg PO DAILY Probacap 10 billion cell capsule 10,000 mmu cells PO BID Primary Care Provider: Debbie William Referrals: Debbie William PA [Primary Care Provider] -
[2023-09-19 08:01] LABS: Absolute Lymphocyte Count 0.76 X10^3/uL (0.83-4.51); Absolute Neutrophil Count 7.3 X10^3/uL (2.0-7.7); Basophil# 0.02 X10^3/uL; Basophil% 0.2 % (0-1); Eosinophil# 0.02 X10^3/uL; Eosinophils% 0.2 % (0-5); Hematocrit 34.8 % (37-47); Hemoglobin 11.6 g/dL (12.0-15.0); Lymphocyte # 0.76 X10^3/ul (0.83-4.51); Lymphocyte % 8.7 % (19-41); Mean Corp Hgb Conc 33.3 g/dL (32-36); Mean Corpuscular Hgb 29.7 pg (27.0-32.0); Mean Platelet Vol. 8.4 fl (6.2-12.0); Monocyte# 0.53 X10^3/uL; Monocyte% 6.1 % (0-10); NRBC Flagged by Analyzer 0 % (0-5); Neutrophil # 7.33 X10^3/uL (2.7-7.7); Neutrophil % 84.2 % (47-70); Platelet Count 321 K/mm3 (150-450); RBC Distribution Width CV 12.5 % (11.6-14.6); RBC Distribution Width SD 40.6 fl (35.1-43.9); Red Blood Count 3.91 M/mm3 (4.2-5.4); White Blood Count 8.7 K/mm3 (4.4-11.0)
[2023-09-19 08:18] LABS: AST(SGOT) 12 U/L (15-37); Alanine Aminotransfer ALT/SGPT 16 U/L (13-56); Albumin, Serum 3.5 g/dL (3.2-5.0); Alkaline Phosphatase 45 U/L (45-117); Anion Gap 7 (5-15); BUN 10 mg/dL (7-18); Calcium,Total 9.1 mg/dL (8.5-10.1); Chloride 105 mmol/L (98-107); Creatinine, Serum 0.67 mg/dL (0.55-1.02); EST Glomerular Filtration Rate 98 mL/min (>60); Est Glom Filt Rate - Afr Amer 119 mL/min (>60); Estimated Creatinine Clearance 87.38 ml/min; Globulin 3.5 g/dL (2.2-4.2); Glucose 121 mg/dL (74-106); Potassium 3.9 mmol/L (3.5-5.1); Sodium Level 136 mmol/L (136-145)
[2023-09-19 09:17] VITALS: BP 127/86; PULSE 80; RESP 18; TEMP 36.7; O2SAT 99
[2023-09-19 09:20] VITALS: BP 127/86; PULSE 80; RESP 18; TEMP 36.7; O2SAT 99
== END 2023-09-19 09:28 | disposition home or self-care (01) ==
PROVIDERS: Emergency Provider Emergency Medicine; PCP Physician Assistant; Visit Provider Emergency Medicine
DX: R19.7 Diarrhea, unspecified (principal); I10 Essential (primary) hypertension; Z90.710 Acquired absence of both cervix and uterus; Z79.899 Other long term (current) drug therapy; F17.290 Nicotine dependence, other tobacco product, uncomplicated; A04.72 Enterocolitis due to Clostridium difficile, not specified as recurrent
CPT/HCPCS: 80053; 85025; 87493; 99283; A4216

== ENCOUNTER → 2023-09-25 | Outpatient (CLI) | payer OTHER, SELFPAY ==
--- NOTE | 2023-09-25 10:14 | CT_ITS ---
STUDY: CT ABDOMEN AND PELVIS WITH CONTRAST REASON FOR EXAM: Female, 53 years old. Right lower abdominal pain -- possible terminal ileitis RADIATION DOSAGE (If Supplied By Facility): CTDIvol = ( 14.36 ) mGy, DLP = ( 445.91 ) mGycm TECHNIQUE: Transaxial images were obtained from the dome of the diaphragm to the symphysis pubis with oral contrast. Oral and amp; IV Gastrografin and amp; 75mL Isovue-370 was administered. Sagittal and coronal images were reconstructed. Individualized dose optimization techniques were used for this CT. COMPARISON: Comparison is made with prior examination of July 17, 2023. FINDINGS: Bilateral breast implants are seen. Minimal right basilar atelectasis. The visualized portions of the heart are within normal limits. There is decreased attenuation of the liver consistent with steatosis. Several small cysts are seen in the right and left lobes of the liver. The largest cyst is seen in the inferior aspect of the right lobe of the liver and measures 2 cm. Normal gallbladder and extrahepatic biliary system. Normal spleen. Normal pancreas. Normal bilateral adrenal glands. Normal right kidney. A left-sided double-J stent catheter is seen with the proximal tip in the collecting system and distal tip in the bladder. Normal visualized stomach. There is diffuse circumferential wall thickening of the distal and terminal ileum with the separation of bowel loops and increased markings in the surrounding peritoneal fat. This is suggestive of a terminal ileitis and Crohn''s disease. Moderate amount of fecal material is seen throughout the colon. Normal colon. There is non-visualization of the appendix. Normal abdominal aorta. Normal inferior vena cava. Normal retroperitoneum. Normal urinary bladder. There is absence of the uterus consistent with a prior hysterectomy. Normal abdominal wall. Disc space narrowing in the spondylosis at the L5-S1 level. Mild degree of dextroscoliosis of the lumbar spine. CT/Abdomen/Pelvis WITH Contrast IMPRESSION: Inflammatory changes as described in the mid distal ileum and terminal ileum suggestive of recurrent Crohn''s disease. Electronically Signed: Steve Alston MD at 12:43 EDT ,
== END | disposition home or self-care (01) ==
PROVIDERS: PCP Physician Assistant; Referring Provider Surgery; Visit Provider Surgery
DX: R10.31 Right lower quadrant pain (principal)
CPT/HCPCS: 74177; Q9967